=== PATIENT | male | born 1960 | race Caucasian/White ===

== ENCOUNTER → 2017-09-17 11:12 | Outpatient (CLI) | payer OTHER, SELFPAY ==
[2017-09-17 12:21] LABS: Absolute Neutrophil Count 4.9 X10^3/uL (2.0-7.7); Basophil# 0.03 X10^3/uL; Basophil% 0.2 % (0-1); Eosinophil# 0.36 X10^3/uL; Eosinophils% 1.9 % (0-5); Hematocrit 37.8 % (40-54); Hemoglobin 12.8 g/dl (13.0-16.5); Lymphocyte % 67.5 % (19-41); Mean Corp Hgb Conc 33.9 g/gl (32-36); Mean Corpuscular Hgb 31.8 pg (27.0-32.0); Mean Platelet Vol. 10.6 fl (6.2-12.0); Monocyte# 0.76 X10^3/uL; Monocyte% 4.1 % (0-10); Neutrophil # 4.85 X10^3/uL (2.7-7.7); Neutrophil % 26.2 % (47-70); Platelet Count 223 K/mm3 (150-450); RBC Distribution Width CV 14.1 % (11.6-14.6); RBC Distribution Width SD 47.9 fl (35.1-43.9); Red Blood Count 4.02 M/mm3 (4.6-6.2); White Blood Count 18.5 K/mm3 (4.4-11.0)
[2017-09-17 12:22] LABS: Differential Indicated SCAN CRITERIA MET; POSITIVE COUNT NO; POSITIVE DIFFERENTIAL YES
[2017-09-17 12:30] LABS: ALB/GLOB Ratio 1.3 RATIO (0.9-2.4); AST(SGOT) 21 U/L (15-37); Alanine Aminotransfer ALT/SGPT 40 U/L (16-61); Albumin, Serum 3.9 g/dL (3.2-5.0); Alkaline Phosphatase 60 U/L (45-117); Anion Gap 10 (5-15); BUN 14 mg/dL (7-18); BUN/Creat Ratio 14.2 RATIO (10-20); Calcium,Total 8.6 mg/dL (8.5-10.1); Chloride 100 mmol/L (98-107); Creatinine, Serum 0.99 mg/dL (0.70-1.30); EST Glomerular Filtration Rate 83 mL/min (>60); Est Glom Filt Rate - Afr Amer 100 mL/min (>60); Globulin 2.9 g/dL (2.2-4.2); Glucose 250 mg/dL (74-106); PSA,Total - Annual Screen 0.27 ng/mL (0.00-4.00); Potassium 4.2 mmol/L (3.5-5.1); Protein, Total 6.8 g/dL (6.4-8.2); Sodium Level 136 mmol/L (136-145); Thyroid Stim Hormone (TSH) 0.29 uIU/mL (0.358-3.74)
[2017-09-17 12:44] LABS: Smudge Cells RARE
[2017-09-17 13:03] LABS: Atypical Lymphocyte RARE %
[2017-09-17 13:04] LABS: POSITIVE MORPHOLOGY YES
[2017-09-19 10:24] LABS: Hep C Antibodies 0.2 s/co ratio (0.0-0.9)
[2017-09-20 12:58] LABS: Pathologist Review Reviewed
== END ==
PROVIDERS: Family Provider Family Medicine Geriatric Medicine; PCP Family Medicine Geriatric Medicine; Visit Provider Family Medicine Geriatric Medicine
DX: E11.9 Type 2 diabetes mellitus without complications (principal); E23.6 Other disorders of pituitary gland; I10 Essential (primary) hypertension; Z12.5 Encounter for screening for malignant neoplasm of prostate; Z13.89 Encounter for screening for other disorder
CPT/HCPCS: 36415; 80053; 84153; 84403; 84443; 85025; 86803; G0103

== ENCOUNTER → 2018-01-25 09:53 | Outpatient (CLI) | payer OTHER, SELFPAY ==
[2018-01-25 13:03] LABS: Thyroid Stim Hormone (TSH) 0.56 uIU/mL (0.358-3.74)
== END ==
PROVIDERS: Family Provider Family Medicine Geriatric Medicine; PCP Family Medicine Geriatric Medicine; Visit Provider Family Medicine Geriatric Medicine
DX: E03.9 Hypothyroidism, unspecified (principal)
CPT/HCPCS: 36415; 84443

== ENCOUNTER → 2018-03-11 09:04 | Outpatient (CLI) | payer OTHER, SELFPAY ==
[2018-03-11 09:04] VITALS: BMI 27.3
[2018-03-11 12:55] LABS: ALB/GLOB Ratio 1.5 RATIO (0.9-2.4); AST(SGOT) 25 U/L (15-37); Alanine Aminotransfer ALT/SGPT 35 U/L (16-61); Albumin, Serum 4.3 g/dL (3.2-5.0); Alkaline Phosphatase 67 U/L (45-117); Anion Gap 10 (5-15); BUN 15 mg/dL (7-18); BUN/Creat Ratio 14.9 RATIO (10-20); Chloride 100 mmol/L (98-107); Creatinine, Serum 1.01 mg/dL (0.70-1.30); Differential Indicated SCAN CRITERIA MET; EST Glomerular Filtration Rate 80 mL/min (>60); Est Glom Filt Rate - Afr Amer 97 mL/min (>60); Globulin 2.8 g/dL (2.2-4.2); Glucose 209 mg/dL (74-106); Hematocrit 41.3 % (40-54); Hemoglobin 14.2 g/dl (13.0-16.5); Lymphocyte % 71.7 % (19-41); Mean Corp Hgb Conc 34.4 g/gl (32-36); Mean Corpuscular Hgb 32.2 pg (27.0-32.0); Mean Corpuscular Volume 93.7 fL (80-94); Mean Platelet Vol. 10.8 fl (6.2-12.0); Neutrophil % 22.3 % (47-70); POSITIVE COUNT NO; POSITIVE DIFFERENTIAL YES; POSITIVE MORPHOLOGY YES; Platelet Count 244 K/mm3 (150-450); Potassium 4.3 mmol/L (3.5-5.1); Protein, Total 7.1 g/dL (6.4-8.2); RBC Distribution Width CV 13.9 % (11.6-14.6); RBC Distribution Width SD 47.2 fl (35.1-43.9); Reactive Lymphocyte 1+; Red Blood Count 4.41 M/mm3 (4.6-6.2); Sodium Level 136 mmol/L (136-145); Thyroid Stim Hormone (TSH) 1.67 uIU/mL (0.358-3.74); White Blood Count 21.9 K/mm3 (4.4-11.0)
[2018-03-11 12:56] LABS: Absolute Neutrophil Count 4.9 X10^3/uL (2.0-7.7); Basophil# 0.05 X10^3/uL; Basophil% 0.2 % (0-1); Eosinophil# 0.49 X10^3/uL; Eosinophils% 2.2 % (0-5); Monocyte# 0.76 X10^3/uL; Monocyte% 3.5 % (0-10); Neutrophil # 4.87 X10^3/uL (2.7-7.7); Smudge Cells 1+
[2018-03-15 10:47] LABS: Pathologist Review Reviewed
== END ==
PROVIDERS: Family Provider Family Medicine Geriatric Medicine; PCP Family Medicine Geriatric Medicine; Visit Provider Family Medicine Geriatric Medicine
DX: E11.9 Type 2 diabetes mellitus without complications (principal); E23.6 Other disorders of pituitary gland; I10 Essential (primary) hypertension
CPT/HCPCS: 36415; 80053; 84403; 84443; 85025

== ENCOUNTER → 2018-04-14 16:13 | Outpatient (CLI) | payer OTHER, SELFPAY ==
[2018-03-11 09:04] VITALS: BMI 27.3
--- NOTE | 2018-04-14 16:16 | RAD_ITS ---
HISTORY: PATIENT FELL A COUPLE OF DAYS AGO. PAIN AND SWELLING TOP OF LEFT FOOT INTO LEFT ANKLE ANTERIORLY. COMPARISON: None FINDINGS: XR left ankle 2 views No fracture, dislocation, or acute osseous abnormality. The tibiotalar joint space appears preserved. The talar dome appears intact. Atherosclerotic calcifications. Moderate to large plantar calcaneal spur. RAD/Ankle 2 Views IMPRESSION: 1. No fracture or acute osseous abnormality. 2. Atherosclerotic calcifications. 3. Plantar calcaneal spur. at 0746 Reported and signed by: Mark Mann MD Electronically Signed: Mark Mann, at 7:45 EST Tel , Service support ,
--- NOTE | 2018-04-14 16:16 | RAD_ITS ---
HISTORY: PATIENT FELL A COUPLE OF DAYS AGO. PAIN AND SWELLING TOP OF LEFT FOOT INTO LEFT ANKLE ANTERIORLY. COMPARISON: None FINDINGS: XR left foot 2 views No fracture or acute osseous abnormality. Joint spaces are preserved. Moderate to large plantar calcaneal spur which measures approximate 9 mm in length. The plantar arch is maintained. No radiopaque foreign body. Atherosclerotic calcifications. RAD/Foot 2 Views IMPRESSION: 1. No fracture or acute disease. 2. Moderate to large plantar calcaneal spur. 3. Atherosclerotic calcifications. at 0744 Reported and signed by: Mark Mann MD Electronically Signed: Mark Mann, at 7:43 EST Tel , Service support ,
== END ==
LOC: RAD 16:15
PROVIDERS: Family Provider Family Medicine Geriatric Medicine; PCP Family Medicine Geriatric Medicine; Referring Provider Family Medicine Geriatric Medicine; Visit Provider Family Medicine Geriatric Medicine
DX: M25.572 Pain in left ankle and joints of left foot (principal); M79.672 Pain in left foot
CPT/HCPCS: 73600; 73620

== ENCOUNTER → 2018-09-22 | Outpatient (CLI) | payer OTHER, SELFPAY ==
[2018-05-23 09:37] VITALS: BMI 25.7
[2018-09-22 17:34] LABS: Absolute Lymphocyte Count 17.62 X10^3/ul (0.83-4.51); Absolute Neutrophil Count 4.4 X10^3/uL (2.0-7.7); Basophil# 0.05 X10^3/uL; Basophil% 0.2 % (0-1); Differential Indicated SCAN CRITERIA MET; Eosinophil# 0.34 X10^3/uL; Eosinophils% 1.5 % (0-5); Hematocrit 39.5 % (40-54); Hemoglobin 13.8 g/dl (13.0-16.5); Lymphocyte # 17.62 X10^3/ul (4.0); Lymphocyte % 76.8 % (19-41); Mean Corp Hgb Conc 34.9 g/gl (32-36); Mean Corpuscular Hgb 31.9 pg (27.0-32.0); Mean Corpuscular Volume 91.2 fL (80-94); Mean Platelet Vol. 10.4 fl (6.2-12.0); Monocyte# 0.53 X10^3/uL; Monocyte% 2.3 % (0-10); Neutrophil # 4.36 X10^3/uL (2.7-7.7); POSITIVE COUNT YES; POSITIVE DIFFERENTIAL YES; POSITIVE MORPHOLOGY NO; Platelet Count 257 K/mm3 (150-450); RBC Distribution Width CV 13.8 % (11.6-14.6); RBC Distribution Width SD 45.3 fl (35.1-43.9); Red Blood Count 4.33 M/mm3 (4.6-6.2)
[2018-09-22 17:51] LABS: ALB/GLOB Ratio 1.4 RATIO (0.9-2.4); AST(SGOT) 24 U/L (15-37); Alanine Aminotransfer ALT/SGPT 33 U/L (16-61); Alkaline Phosphatase 68 U/L (45-117); Anion Gap 6 (5-15); BUN 18 mg/dL (7-18); BUN/Creat Ratio 17.1 RATIO (10-20); Calcium,Total 9.1 mg/dL (8.5-10.1); Chloride 105 mmol/L (98-107); Creatinine, Serum 1.05 mg/dL (0.70-1.30); EST Glomerular Filtration Rate 77 mL/min (>60); Est Glom Filt Rate - Afr Amer 93 mL/min (>60); Globulin 2.9 g/dL (2.2-4.2); Glucose 131 mg/dL (74-106); PSA,Total - Annual Screen 0.37 ng/mL (0.00-4.00); Potassium 4.9 mmol/L (3.5-5.1); Protein, Total 6.9 g/dL (6.4-8.2); Sodium Level 137 mmol/L (136-145); Thyroid Stim Hormone (TSH) 0.29 uIU/mL (0.358-3.74)
[2018-09-22 17:59] LABS: Differential Comment SCANNED
== END | disposition home or self-care (01) ==
LOC: POLAB3 10:59
PROVIDERS: Family Provider Family Medicine Geriatric Medicine; PCP Family Medicine Geriatric Medicine; Visit Provider Family Medicine Geriatric Medicine
DX: E11.9 Type 2 diabetes mellitus without complications (principal); F52.8 Other sexual dysfunction not due to a substance or known physiological condition; I10 Essential (primary) hypertension; Z12.5 Encounter for screening for malignant neoplasm of prostate
CPT/HCPCS: 36415; 80053; 84153; 84403; 84443; 85025; G0103

== ENCOUNTER → 2019-03-23 16:08 | Outpatient (CLI) | payer OTHER, SELFPAY ==
[2018-05-23 09:37] VITALS: BMI 25.7
[2018-11-23 16:01] VITALS: BMI 26.0
[2019-03-23 17:00] LABS: Absolute Lymphocyte Count 16.65 X10^3/uL (0.83-4.51); Absolute Neutrophil Count 4.7 X10^3/uL (2.0-7.7); Basophil# 0.08 X10^3/uL; Basophil% 0.3 % (0-1); Eosinophils% 1.7 % (0-5); Hematocrit 41.3 % (40-54); Hemoglobin 14.1 g/dL (13.0-16.5); Lymphocyte # 16.65 X10^3/ul (4.0); Lymphocyte % 70.3 % (19-41); Mean Corp Hgb Conc 34.1 g/dL (32-36); Mean Corpuscular Hgb 32.2 pg (27.0-32.0); Mean Corpuscular Volume 94.3 fL (80-94); Mean Platelet Vol. 10.7 fl (6.2-12.0); Monocyte# 1.78 X10^3/uL; Monocyte% 7.5 % (0-10); NRBC Flagged by Analyzer 0 % (0-5); Neutrophil # 4.73 X10^3/uL (2.7-7.7); POSITIVE DIFFERENTIAL YES; POSITIVE MORPHOLOGY YES; Platelet Count 287 K/mm3 (150-450); RBC Distribution Width CV 13.4 % (11.6-14.6); Red Blood Count 4.38 M/mm3 (4.6-6.2); White Blood Count 23.7 K/mm3 (4.4-11.0)
[2019-03-23 17:09] LABS: Differential Indicated SCAN CRITERIA MET
[2019-03-23 17:20] LABS: Vitamin D,25 Hydroxy 24.9 ng/mL (29.95-100.01)
[2019-03-23 17:25] LABS: ALB/GLOB Ratio 1.4 RATIO (0.9-2.4); AST(SGOT) 18 U/L (15-37); Alanine Aminotransfer ALT/SGPT 34 U/L (16-61); Albumin, Serum 4.3 g/dL (3.2-5.0); Alkaline Phosphatase 63 U/L (45-117); Anion Gap 5 (5-15); BUN 15 mg/dL (7-18); BUN/Creat Ratio 13.2 RATIO (10-20); Calcium,Total 9.6 mg/dL (8.5-10.1); Chloride 101 mmol/L (98-107); Creatinine, Serum 1.14 mg/dL (0.70-1.30); EST Glomerular Filtration Rate 70 mL/min (>60); Est Glom Filt Rate - Afr Amer 84 mL/min (>60); Glucose 226 mg/dL (74-106); Potassium 4.3 mmol/L (3.5-5.1); Protein, Total 7.3 g/dL (6.4-8.2); Sodium Level 135 mmol/L (136-145); Thyroid Stim Hormone (TSH) 1.45 uIU/mL (0.358-3.74)
[2019-03-23 19:07] LABS: Platelet Estimate ADEQUATE (ADEQ); Reactive Lymphocyte 1+; Red Cell Morphology NORM C+C NORMAL (NORM C&C)
[2019-03-24 14:10] LABS: Pathologist Review Reviewed
== END ==
LOC: POLAB3 16:09
PROVIDERS: Family Provider Family Medicine Geriatric Medicine; PCP Family Medicine Geriatric Medicine; Visit Provider Family Medicine Geriatric Medicine
DX: E11.9 Type 2 diabetes mellitus without complications (principal); E55.9 Vitamin D deficiency, unspecified; I10 Essential (primary) hypertension
CPT/HCPCS: 36415; 80053; 82306; 84443; 85025

== ENCOUNTER → 2019-09-28 16:05 | Outpatient (CLI) | payer OTHER, SELFPAY ==
[2019-05-24 13:50] VITALS: BMI 26.4
[2019-09-28 16:27] LABS: Absolute Lymphocyte Count 15.14 X10^3/uL (0.83-4.51); Absolute Neutrophil Count 4.5 X10^3/uL (2.0-7.7); Basophil# 0.08 X10^3/uL; Basophil% 0.4 % (0-1); Eosinophil# 0.37 X10^3/uL; Eosinophils% 1.7 % (0-5); Hematocrit 38.7 % (40-54); Hemoglobin 13.5 g/dL (13.0-16.5); Lymphocyte # 15.14 X10^3/ul (4.0); Lymphocyte % 69.2 % (19-41); Mean Corp Hgb Conc 34.9 g/dL (32-36); Mean Corpuscular Hgb 32.6 pg (27.0-32.0); Mean Corpuscular Volume 93.5 fL (80-94); Mean Platelet Vol. 10.6 fl (6.2-12.0); Monocyte# 1.75 X10^3/uL; NRBC Flagged by Analyzer 0 % (0-5); Neutrophil # 4.48 X10^3/uL (2.7-7.7); Neutrophil % 20.4 % (47-70); POSITIVE DIFFERENTIAL YES; POSITIVE MORPHOLOGY YES; Platelet Count 257 K/mm3 (150-450); RBC Distribution Width CV 13.4 % (11.6-14.6); RBC Distribution Width SD 46.2 fl (35.1-43.9); Red Blood Count 4.14 M/mm3 (4.6-6.2); White Blood Count 21.9 K/mm3 (4.4-11.0)
[2019-09-28 16:29] LABS: Differential Indicated SCAN CRITERIA MET
[2019-09-28 16:47] LABS: Differential Comment SEE COMMENTS
[2019-09-28 16:48] LABS: Anisocytosis RARE; Macrocytosis RARE; Platelet Estimate ADEQUATE (ADEQ); Red Cell Morphology N CHROM NORMAL (NORM C&C)
[2019-09-28 17:21] LABS: ALB/GLOB Ratio 1.4 RATIO (0.9-2.4); AST(SGOT) 21 U/L (15-37); Alanine Aminotransfer ALT/SGPT 31 U/L (16-61); Albumin, Serum 4.1 g/dL (3.2-5.0); Alkaline Phosphatase 62 U/L (45-117); Anion Gap 8 (5-15); BUN 19 mg/dL (7-18); BUN/Creat Ratio 18.4 RATIO (10-20); Calcium,Total 9.1 mg/dL (8.5-10.1); Chloride 100 mmol/L (98-107); Creatinine, Serum 1.03 mg/dL (0.70-1.30); EST Glomerular Filtration Rate 78 mL/min (>60); Est Glom Filt Rate - Afr Amer 95 mL/min (>60); Glucose 234 mg/dL (74-106); PSA,Total - Annual Screen 0.34 ng/mL (0.00-4.00); Potassium 4.3 mmol/L (3.5-5.1); Protein, Total 7.1 g/dL (6.4-8.2); Sodium Level 135 mmol/L (136-145)
[2019-09-29 11:06] LABS: Pathologist Review Reviewed
== END ==
PROVIDERS: PCP Family Medicine Geriatric Medicine; Visit Provider Family Medicine Geriatric Medicine
DX: E11.9 Type 2 diabetes mellitus without complications (principal); E23.6 Other disorders of pituitary gland; I10 Essential (primary) hypertension; Z12.5 Encounter for screening for malignant neoplasm of prostate
CPT/HCPCS: 36415; 80053; 84153; 84403; 84443; 85025; G0103

== ENCOUNTER → 2019-10-03 | Outpatient (CLI) | payer OTHER, SELFPAY ==
[2019-05-24 13:50] VITALS: BMI 26.4
--- NOTE | 2019-10-03 | LES_PTH ---
PATIENT: SAMUEL BRODERICK LOC: [facility] U#:[id number] AGE/SX: 58/M ROOM: RE10/03/[address]: Dr. Emery Lambert MD : 1960 BED: DIS: 10/03/2019 SPEC #: [id number] RECD: 10/03/19 14:06 STATUS: TELMA VIOLETA #: [id number] JOB: 10/03/19 00:[address]: Emery Lambert Chi DEPT: SURGICAL PATHOLOGY RECD BY: Moise Shaffer Tissues: Skin of head, NOS Procedures: Surgery Specimen Level IV HEADER OPERATION: Biopsy PRE-OP DIAGNOSIS: Back of head lesion TISSUE SUBMITTED: Back of head MICROSCOPIC DIAGNOSIS Back of head lesion, shave biopsy: Actinic keratosis with mild atypia. Solar elastosis. Focal mild chronic follicular inflammation. Mild melanocytic hyperplasia, favor reactive. Demodex folliculorum. See comment. MALENA:zach 10/04/19 COMMENT Immunohistochemistry ([id number]) supports the above diagnosis. Clinical correlation and appropriate follow up are necessary. Case has been reviewed in consultation with Dr. Valdovinos who concurs with the above diagnosis. IDC:AM MICROSCOPIC DESCRIPTION Slides are reviewed. GROSS DESCRIPTION Received in fixative is one container labeled with the patient's name and designated back of head. The specimen consists of a light martin shaved biopsy of skin measuring 1 x 0.8 x 0.2 cm. The specimen is inked, serially sectioned and totally submitted in one cassette. / AM:zach 10/03/19 TC:5 CPT: 18939
--- NOTE | 2019-10-03 | IMM_PTH ---
PATIENT: SAMUEL BRODERICK LOC: [facility] U#:[id number] AGE/SX: 58/M ROOM: RE10/03/[address]: Dr. Emery Lambert MD : 1960 BED: DIS: 10/03/2019 SPEC #: [id number] RECD: 10/04/19 13:39 STATUS: TELMA REQ #: [id number] JOB: 10/03/19 00:[address]: Emery Lambert Chi DEPT: IMMUNOHISTOCHEMISTRY RECD BY: Sharron Shin Tissues: Skin of head, NOS Procedures: CK5-6 (initial) MART1 (add) P40 (add) S-100 (add) PHYSICIAN & INSTITUTION [place] [id number] SPECIMEN INFORMATION: Tissue Source: Back of head Clinical Info: Back of head lesion Specimen Number: [id number] CPT code: 76366, 98271 x3 METHODOLOGY: Deparaffinized sections of prefer/formalin-fixed tissue or PAP/DQ stained slides are incubated with monoclonal/polyclonal antibodies/oligonucleotide probes. Localization is made via biotin free immunoperoxidase method. Appropriate controls are performed and reacted as expected. Results on target cell population are indicated in the following table: RESULTS: ANTIBODY / CLONE RESULT CK5-6 (D5 & 1684) positive P40 (BC28) positive S-100 (4C4.9) positive MART-1 (A-103) positive These tests were developed and their performance characteristics determined by [facility]. They may not have been cleared or approved by the U.S. Food and Drug Administration. The FDA has determined that such clearance or approval is not necessary. The above immunohistochemical/dualISH markers are ordered and reviewed by the Pathologist. INTERPRETATION: Back of head lesion, biopsy: Actinic keratosis. Mild melanocytic hyperplasia, favor reactive. Negative for malignancy. SJ:zach 10/05/19
== END | disposition home or self-care (01) ==
LOC: LABSPEC 11:42
PROVIDERS: PCP Family Medicine Geriatric Medicine; Visit Provider Family Medicine Geriatric Medicine
DX: L98.9 Disorder of the skin and subcutaneous tissue, unspecified (principal)
CPT/HCPCS: 88305; 88341; 88342

== ENCOUNTER → 2020-04-18 16:02 | Outpatient (CLI) | payer OTHER, SELFPAY ==
[2019-05-24 13:50] VITALS: BMI 26.4
[2020-04-18 16:36] LABS: Absolute Lymphocyte Count 23.42 X10^3/uL (0.83-4.51); Absolute Neutrophil Count 4.8 X10^3/uL (2.0-7.7); Basophil% 0.3 % (0-1); Hematocrit 41.7 % (40-54); Hemoglobin 14.2 g/dL (13.0-16.5); Lymphocyte # 23.42 X10^3/ul (4.0); Lymphocyte % 79.9 % (19-41); Mean Corp Hgb Conc 34.1 g/dL (32-36); Mean Corpuscular Hgb 31.4 pg (27.0-32.0); Mean Corpuscular Volume 92.3 fL (80-94); Mean Platelet Vol. 10.5 fl (6.2-12.0); Monocyte# 0.61 X10^3/uL; Monocyte% 2.1 % (0-10); NRBC Flagged by Analyzer 0 % (0-5); Neutrophil # 4.81 X10^3/uL (2.7-7.7); Neutrophil % 16.5 % (47-70); POSITIVE DIFFERENTIAL YES; POSITIVE MORPHOLOGY YES; Platelet Count 253 K/mm3 (150-450); RBC Distribution Width CV 13.7 % (11.6-14.6); RBC Distribution Width SD 46.3 fl (35.1-43.9); Red Blood Count 4.52 M/mm3 (4.6-6.2); White Blood Count 29.3 K/mm3 (4.4-11.0)
[2020-04-18 16:43] LABS: Differential Indicated SCAN CRITERIA MET
[2020-04-18 17:01] LABS: ALB/GLOB Ratio 1.3 RATIO (0.9-2.4); AST(SGOT) 14 U/L (15-37); Alanine Aminotransfer ALT/SGPT 28 U/L (16-61); Albumin, Serum 4.1 g/dL (3.2-5.0); Alkaline Phosphatase 75 U/L (45-117); Anion Gap 5 (5-15); BUN 15 mg/dL (7-18); BUN/Creat Ratio 14.7 RATIO (10-20); Chloride 103 mmol/L (98-107); Creatinine, Serum 1.02 mg/dL (0.70-1.30); EST Glomerular Filtration Rate 79 mL/min (>60); Est Glom Filt Rate - Afr Amer 95 mL/min (>60); Globulin 3.1 g/dL (2.2-4.2); Glucose 203 mg/dL (74-106); Potassium 3.9 mmol/L (3.5-5.1); Protein, Total 7.2 g/dL (6.4-8.2); Sodium Level 137 mmol/L (136-145); Thyroid Stim Hormone (TSH) 3.75 uIU/mL (0.358-3.74)
[2020-04-18 17:06] LABS: Differential Comment SCANNED
== END ==
PROVIDERS: PCP Family Medicine Geriatric Medicine; Visit Provider Family Medicine Geriatric Medicine
DX: E11.9 Type 2 diabetes mellitus without complications (principal); E23.6 Other disorders of pituitary gland; I10 Essential (primary) hypertension
CPT/HCPCS: 36415; 80053; 84403; 84443; 85025

== ENCOUNTER → 2020-05-20 15:36 | Outpatient (CLI) | payer OTHER, SELFPAY ==
[2019-05-24 13:50] VITALS: BMI 26.4
[2020-05-20 17:17] LABS: Absolute Lymphocyte Count 17.82 X10^3/uL (0.83-4.51); Basophil# 0.04 X10^3/uL; Basophil% 0.2 % (0-1); Eosinophil# 0.41 X10^3/uL; Eosinophils% 1.7 % (0-5); Hemoglobin 13.9 g/dL (13.0-16.5); Lymphocyte # 17.82 X10^3/ul (4.0); Lymphocyte % 74.7 % (19-41); Mean Corp Hgb Conc 34.8 g/dL (32-36); Mean Corpuscular Hgb 32.3 pg (27.0-32.0); Mean Platelet Vol. 11.1 fl (6.2-12.0); Monocyte# 0.54 X10^3/uL; Monocyte% 2.3 % (0-10); NRBC Flagged by Analyzer 0 % (0-5); Neutrophil # 4.97 X10^3/uL (2.7-7.7); Neutrophil % 20.7 % (47-70); POSITIVE DIFFERENTIAL YES; POSITIVE MORPHOLOGY YES; Platelet Count 243 K/mm3 (150-450); RBC Distribution Width CV 13.6 % (11.6-14.6); RBC Distribution Width SD 46.5 fl (35.1-43.9); White Blood Count 23.9 K/mm3 (4.4-11.0)
[2020-05-20 17:29] LABS: Prothrombin Time (Protime)PT. 13.1 SECONDS (11.7-14.9)
[2020-05-20 17:36] LABS: Differential Indicated SCAN CRITERIA MET
[2020-05-20 17:43] LABS: Differential Comment SCANNED
[2020-05-20 17:49] LABS: Anion Gap 6 (5-15); BUN 19 mg/dL (7-18); BUN/Creat Ratio 18.8 RATIO (10-20); Calcium,Total 9.3 mg/dL (8.5-10.1); Chloride 102 mmol/L (98-107); Creatinine, Serum 1.01 mg/dL (0.70-1.30); EST Glomerular Filtration Rate 80 mL/min (>60); Est Glom Filt Rate - Afr Amer 96 mL/min (>60); Glucose 316 mg/dL (74-106); Potassium 4.1 mmol/L (3.5-5.1); Sodium Level 136 mmol/L (136-145)
[2020-05-22 09:38] LABS: Hemoglobin A1c 7.6 % (3.8-5.6)
== END ==
PROVIDERS: PCP Family Medicine Geriatric Medicine; Referring Provider Family Medicine Geriatric Medicine; Visit Provider Family Medicine Geriatric Medicine
DX: Z01.818 Encounter for other preprocedural examination (principal)
CPT/HCPCS: 36415; 80048; 83036; 85025; 85610

== ENCOUNTER → 2020-05-22 06:02 | Outpatient (CLI) | payer OTHER, SELFPAY ==
[2019-05-24 13:50] VITALS: BMI 26.4
--- NOTE | 2020-05-22 09:58 | STRESSREP_ITS ---
Stress Test Report Date: 05-22-2020 Procedure: Pharmacologic stress nuclear imaging study Indications: Abnormal ECG; preoperative cardiovascular evaluation Consent: Per the patient Procedure: The patient underwent pharmacologic (Regadenoson 0.4mg ) evaluation with a peak heart rate of 84 beats per minute (52%predicted maximal heart rate) and a peak blood pressure of 150/70 mmHg. The baseline ECG demonstrated sinus rhythm; Incomplete right bundle branch block pattern. The peak pharmacologic ECG demonstrated no obvious ECG changes. There were no cardiac dysrhythmias pretest, during pharmacologic infusion, or recovery. There was no complaint of chest discomfort during pharmacologic infusion or recovery. The examination was discontinued secondary to completion of protocol. Impression: 1. Pharmacologic (Regadenoson) evaluation 2. Peak pharmacologic ECG with no obvious ECG changes. 3. There were no cardiac dysrhythmias pretest, during pharmacologic infusion, or recovery. 4. Nuclear images pending Myocardial perfusion imaging study: Technique: The patient was injected with 11.9 millicuries of technetium 99m Cardiolite and subsequently rest SPECT Cardiolite nuclear imaging was obtained in the horizontal long, vertical long, and short axis views. The patient underwent pharmacologic (Regadenoson) evaluation with a peak heart rate of 84 beats per minute (52% percent predicted maximal heart rate) and a peak blood pressure of 150/70 mmHg. The patient was injected with 33.1 millicuries of technetium 99m Cardiolite and subsequently stress SPECT Cardiolite nuclear imaging was obtained in the horizontal long, vertical long, and short axis views. A gated Cardiolite study at peak stress was obtained. Interpretation: Rest and stress SPECT Cardiolite nuclear imaging status post realignment, normalization, and attenuation correction demonstrate appearance of extracardiac/gastrointestinal tracer uptake near the inferior segments and a small area of subtle diminished tracer uptake near the inferior apical segments without significant change between rest and stress. There is end systolic thickening and brightening. The gated Cardiolite study demonstrates myocardial thickening and inward wall motion. The reported LVEF is 66%. Impression: 1. Rest and stress by current nuclear imaging demonstrate findings compatible w ith extracardiac/gastrointestinal tracer uptake near the inferior segments and a small area of subtle diminished tracer uptake near the inferior apical segments without significant change between rest and stress appearing compatible with soft tissue attenuation/artifact with no myocardial perfusion changes considered diagnostic for associated stress-induced myocardial ischemia. 2. The gated Cardiolite study reports an LVEF of 66%. This note was generated with [employer] software. It may contain incorrect words, spelling, and punctuation that were not noted in checking the note before signing.
== END ==
PROVIDERS: PCP Family Medicine Geriatric Medicine; Referring Provider Family Medicine Geriatric Medicine; Visit Provider Family Medicine Geriatric Medicine
DX: R68.89 Other general symptoms and signs (principal)
CPT/HCPCS: 78452; 93017; A9500; A4216; J2785

== ENCOUNTER → 2020-10-01 15:42 | Outpatient (CLI) | payer OTHER, SELFPAY ==
[2020-05-22 14:16] VITALS: BMI 26.2
[2020-10-01 17:04] LABS: Absolute Lymphocyte Count 20.95 X10^3/uL (0.83-4.51); Absolute Neutrophil Count 3.5 X10^3/uL (2.0-7.7); Basophil% 0.4 % (0-1); Eosinophils% 1.1 % (0-5); Hemoglobin 13.2 g/dL (13.0-16.5); Lymphocyte # 20.95 X10^3/ul (0.83-4.51); Mean Corp Hgb Conc 34.7 g/dL (32-36); Mean Corpuscular Hgb 32.5 pg (27.0-32.0); Mean Corpuscular Volume 93.6 fL (80-94); Mean Platelet Vol. 11.1 fl (6.2-12.0); Monocyte# 1.65 X10^3/uL; Monocyte% 6.2 % (0-10); NRBC Flagged by Analyzer 0 % (0-5); Neutrophil # 3.46 X10^3/uL (2.7-7.7); Neutrophil % 13.1 % (47-70); POSITIVE DIFFERENTIAL YES; POSITIVE MORPHOLOGY YES; Platelet Count 230 K/mm3 (150-450); RBC Distribution Width CV 13.2 % (11.6-14.6); RBC Distribution Width SD 45.2 fl (35.1-43.9); Red Blood Count 4.06 M/mm3 (4.6-6.2); White Blood Count 26.5 K/mm3 (4.4-11.0)
[2020-10-01 17:12] LABS: Differential Indicated SCAN CRITERIA MET
[2020-10-01 17:33] LABS: Differential Comment SCANNED
[2020-10-01 17:34] LABS: ALB/GLOB Ratio 1.7 RATIO (0.9-2.4); AST(SGOT) 21 U/L (15-37); Alanine Aminotransfer ALT/SGPT 29 U/L (16-61); Albumin, Serum 4.2 g/dL (3.2-5.0); Alkaline Phosphatase 68 U/L (45-117); Anion Gap 8 (5-15); BUN 19 mg/dL (7-18); BUN/Creat Ratio 19.3 RATIO (10-20); Calcium,Total 9.1 mg/dL (8.5-10.1); Chloride 101 mmol/L (98-107); Creatinine, Serum 0.98 mg/dL (0.70-1.30); EST Glomerular Filtration Rate 82 mL/min (>60); Est Glom Filt Rate - Afr Amer 100 mL/min (>60); Globulin 2.5 g/dL (2.2-4.2); Glucose 172 mg/dL (74-106); PSA,Total - Annual Screen 0.36 ng/mL (0.00-4.00); Potassium 4.1 mmol/L (3.5-5.1); Protein, Total 6.7 g/dL (6.4-8.2); Sodium Level 136 mmol/L (136-145); Thyroid Stim Hormone (TSH) 2.49 uIU/mL (0.358-3.74)
[2020-10-02 13:31] LABS: Pathologist Review Reviewed
== END ==
PROVIDERS: PCP Family Medicine Geriatric Medicine; Visit Provider Family Medicine Geriatric Medicine
DX: E11.9 Type 2 diabetes mellitus without complications (principal); E23.6 Other disorders of pituitary gland; I10 Essential (primary) hypertension; Z12.5 Encounter for screening for malignant neoplasm of prostate
CPT/HCPCS: 36415; 80053; 84153; 84403; 84443; 85025; G0103

== ENCOUNTER → 2020-10-04 12:57 | Outpatient (CLI) | payer OTHER, SELFPAY ==
[2020-05-22 14:16] VITALS: BMI 26.2
--- NOTE | 2020-10-04 12:59 | CT_ITS ---
STUDY: CT MAXILLOFACIAL SINUSES REASON FOR EXAM: Male, 59 years old. CHRONIC SINUSITIS RADIATION DOSAGE (If Supplied By Facility): CTDIvol = ( 33.06 ) mGy, DLP = ( 792.53 ) mGycm TECHNIQUE: The patient was scanned in a multi detector CT scanner. High resolution axial imaging was performed without the administration of intravenous contrast material. Sagittal and coronal images were reconstructed. Individualized dose optimization techniques were used for this CT. COMPARISON: Comparison is made with prior study dated 04/27/2014. FINDINGS: FRONTAL SINUSES: Mucosal thickening of the right frontal sinus. ETHMOIDAL SINUSES: There is partial opacification of the ethmoid sinuses bilaterally slightly more prominent on the right side. Prominent on the right side. MAXILLARY SINUSES: There is opacification of the right maxillary sinus. There is evidence of prior resection of the medial wall of the right maxillary sinus. SPHENOIDAL SINUSES: Mucosal thickening of the right sphenoid sinus. There is patency of the left ostiomeatal complex. Normal bilateral middle turbinates. There is hypertrophy of the bilateral inferior nasal turbinates. There is a left sided nasal septal deviation with a left sided nasal septal spur. There is patency of the bilateral nasal airways. The visualized osseous structures are normal. The visualized bilateral orbital contents are normal. CT/Sinus/Facial Bone IMPRESSION: Status post surgical resection of the medial wall of the right maxillary sinus. Opacification of the right maxillary sinus. Partial opacification of the ethmoid sinuses bilaterally slightly There is been improvement as compared to prior study. Electronically Signed: Terry Dove MD at 13:46 EDT , Service support ,
== END ==
PROVIDERS: PCP Family Medicine Geriatric Medicine; Referring Provider Otolaryngology; Visit Provider Otolaryngology
DX: J32.9 Chronic sinusitis, unspecified (principal)
CPT/HCPCS: 70486

== ENCOUNTER 2021-01-06 05:59 | Day surgery (SDC) | payer OTHER, SELFPAY ==
[2020-05-22 14:16] VITALS: BMI 26.2
[2021-01-03 10:09] LABS: Anion Gap 6 (5-15); BUN 18 mg/dL (7-18); BUN/Creat Ratio 17.3 RATIO (10-20); Calcium,Total 8.6 mg/dL (8.5-10.1); Chloride 102 mmol/L (98-107); Creatinine, Serum 1.04 mg/dL (0.70-1.30); EST Glomerular Filtration Rate 77 mL/min (>60); Est Glom Filt Rate - Afr Amer 93 mL/min (>60); Glucose 285 mg/dL (74-106); Hemoglobin A1c 6.7 % (3.8-5.6); Potassium 4.4 mmol/L (3.5-5.1); Sodium Level 135 mmol/L (136-145); Thyroid Stim Hormone (TSH) 1.21 uIU/mL (0.358-3.74)
[2021-01-06] VITALS (7 sets, daily range): BP systolic 128–147; BP diastolic 68–80; PULSE 63–76; RESP 14–16; TEMP 35.9–36.5; O2SAT 93–98; BMI 26.8
[2021-01-06] MEDS: Lactated Ringers 1,000 ML 100 ML IV (06:21)
[2021-01-06] MEDS: Oxymetazoline 0.05% 1 SPRAY SPRAY.BTL 3 SPRAY NASAL (07:08)
--- NOTE | 2021-01-06 07:25 | EKG12_ITS ---
Test Reason : PRE OP Blood Pressure : / mmHG Vent. Rate : 059 BPM Atrial Rate : 059 BPM P-R Int : 178 ms QRS Dur : 120 ms QT Int : 416 ms P-R-T Axes : 049 -45 035 degrees QTc Int : 411 ms Sinus bradycardia Right bundle branch block Left anterior fascicular block Bifascicular block Abnormal ECG Confirmed by JAYE CARNEY, KAMERON ([id number]), newspaper editor NOLBERTO CHI ([id number]) on 01/06/2021 7:26:36 AM Referred By: Marcos Stanton Confirmed By:KAMERON CEE MD
--- NOTE | 2021-01-06 07:30 | NASAL_PTH ---
PATIENT: SAMUEL BRODERICK LOC: [facility] [place] U#:[id number] AGE/SX: 60/M ROOM: RE01/06/[address]: Dr. Marcos Stanton MD : 1960 BED: DIS: 01/06/2021 SPEC #: [id number] RECD: 01/06/21 12:56 STATUS: TELMA VIOLETA #: [id number] JOB: 01/06/21 07:[address]: Marcos Stanton DEPT: SURGICAL PATHOLOGY RECD BY: Shandra David ENTERED: 01/06/21 13:11 SP TYPE: NASAL SPEC OTHR DR: Dr. Emery Lambert MD Tissues: A - NASAL POLYP B - NASAL POLYP C - Nasal septum, NOS Procedures: Decalcification bone/plaque Special Stain Group I Surgery Specimen Level III GMS Stain (control) HEADER OPERATION: Total ethmoidectomy, maxillary antrostomy, septoplasty PRE-OP DIAGNOSIS: Polyp nasal cavity, chronic sinusitis, deviated septum TISSUE SUBMITTED: A ? Right nasal contents, B ? Left nasal contents, C - Septum MICROSCOPIC DIAGNOSIS A. Right nasal contents, excision: Respiratory mucosa and submucosa with chronic and focal acute inflammation. Negative for fungal organisms. Fragments of benign bone. See comment. B. Left nasal contents, excision: Fragments of respiratory mucosa and submucosa with chronic inflammation. Fragments of bone with no pathologic change. C. Nasal septum, septoplasty: Fragments of hyaline cartilage and bone with focal reparative and reactive change. AM:zach 01/09/2021 COMMENT A. GMS stain with matched control was used in the evaluation of this case. MICROSCOPIC DESCRIPTION Slides are reviewed. GROSS DESCRIPTION A - Received in fixative is one container labeled with the patient's name and designated right nasal contents. The specimen consists of multiple irregular and gritty fragments of light martin tissue that in aggregate measure 3 x 1 x 0.1 cm. The specimen is totally submitted in one cassette after decalcification. B - Received in fixative is one container labeled with the patient's name and designated left nasal contents. The specimen consists of multiple irregular and gritty fragments of light martin tissue that in aggregate measure 3 x 3 x 0.2 cm. The specimen is totally submitted in one cassette after decalcification. C - Received in fixative is one container labeled with the patient's name and designated septum. The specimen consists of multiple irregular fragments of pink-martin bone that in aggregate measure 2 x 1 x 0.2 cm. The specimen is totally submitted in one cassette after decalcification. / AM:zach 01/06/21 TC:3 CPT: 46400 x3, 66399 x3, 82625
--- NOTE | 2021-01-06 07:36 | PCM.DC.SUM ---
Providers Primary Care Physician: Dr. Emery Lambert MD Reason For Visit: BILATERAL ETHMOIDECTOMY, MAXILLARY ANSTROSTOMY Medications at Discharge Home Medications atorvastatin 40 mg PO BREAKFAST 07/02/16 lactase [Dairy Digestive] 4,500 unit PO TID 07/02/16 losartan [Cozaar] 100 mg PO DAILY 07/02/16 metformin 1,000 mg PO BIDCM 07/02/16 levothyroxine 137 mcg PO DAILY 05/24/19 Weight / BMI Weight Weight: 92.3 kg Body Mass Index (BMI) 26.8 ABG / Lab / Microbiology Data Result Diagrams: 01/03/21 09:10 01/03/21 09:10 D/C Instructions Discharge Diet: No restrictions Additional Activity Instructions: NO NOSEBLOWING Additional Dressing/Incision Instructions: Start irrigation with saline on 01/07/21. Irrigate 4-5 x/day. Please Follow Up With: Marcos Stanton MD When: Next week Meaningful Use Info Meaningful Use Diagnoses (Choose all that apply): None applicable Discharge Plan Admission Attending Provider: Marcos Stanton Primary Care Provider: Emery Lambert Chi Discharge Orders/Prescriptions Prescriptions: No Action atorvastatin 10 MG tablet 40 mg PO BREAKFAST RF: 0 Dairy Digestive 9,000 UNIT tablet 4,500 unit PO TID RF: 0 metformin 1,000 MG tablet 1,000 mg PO BIDCM RF: 0 losartan [Cozaar] 25 MG tablet 100 mg PO DAILY RF: 0 levothyroxine 137 MCG tablet 137 mcg PO DAILY RF: 0 Disposition Discharge Orders: Discharge Patient (Routine); Ordered 01/06/21 Ordered By: Dr. Marcos Stanton
[2021-01-06] MEDS: Mupirocin Ointment 22gm Tube 1 APPLIC (07:44)
[2021-01-06] MEDS: Lidocaine 1% /Epi 1:100 (20ml) 20 ML Vial (07:45)
[2021-01-06 08:31] LABS: Bedside Glucose 234 mg/dL (70-110)
--- NOTE | 2021-01-06 09:23 | PCM.OPRPT ---
Report of Operation Date of Procedure: 01/06/21 Pre-Operative Diagnosis: chronic sinusitis nasal polyposis deviated septum Post-Operative Diagnosis: same Surgery/Procedure Performed:: Bilateral maxillary antrostomy bilateral total ethmoidectomy septoplasty Surgeon: Marcos Stanton Type of Anesthesia: General Anesthesiologist: Willie Ambriz Estimated Blood Loss (mL): minimal Description of Procedure: The patient was taken to the operating room on 01/06/21. The patient was placed in the supine position on the operating table. The patient was given sufficient general endotracheal anesthesia. The head of bed was elevated 30 degrees. The navigation system was placed and verified per protocol and found to be accurate. 0 and 30 degrees rigid nasal endoscopes were used throughout the entire case. The middle turbinate uncinate process, septum and polyps were injected with 1% lidocaine with epinephrine bilaterally. The right middle turbinate was medialized with a [place] elevator. Polyp was removed from the middle meatus using a sinus shaver. A ball-tipped sinus seeker was placed into the patient's maxillary sinus. The uncinate process was taken down using a microdebrider. Next, the ethmoid bulla was opened with a small curette. Anterior and posterior ethmoidectomy were then carried out using curette, sinus shaver and 45 degree Blakesley Desmond forceps. Ethmoid cells were verified for relation to the skull base and orbit prior to being entered with the navigation system. I then placed Afrin pledgets into the sinonasal cavity. With a 15 blade, an incision was placed over the left septal spur that was jutting into the left middle meatus. I then elevated the mucoperichondrium superiorly and inferiorly off of the spur. I then established a plane on the right-hand side of the septum. The spur was then removed with the [place] elevator as well as open Hair-Quan forceps. The septal flaps were then redraped. Next attention was turned to the left side. The middle turbinate was medialized with a [place] elevator. A polyp was removed from the middle meatus using a sinus shaver. The uncinate process was taken down using a sinus shaver. In doing so, the maxillary antrostomy was created. The ethmoid bulla was opened with a small curette. Anterior posterior ethmoidectomy were then carried out using a sinus shaver curette and Blakesley Desmond forceps. Ethmoid cells were verified for relation to the skull base and orbit prior to being entered with the navigation system. Hemostasis was then achieved using Afrin pledgets. The pledgets were then removed bilaterally and Bozena powder was applied bilaterally for absolute hemostasis. The procedure was then terminated. The patient was then awoken and brought to the recovery room in stable condition blood loss less than 30 cc replacement none. Sponge, needle, instrument count were correct at the end of the procedure.
== END 2021-01-06 12:09 | disposition home or self-care (01) ==
LOC: SDC 06:00 → AC 06:01
PROVIDERS: Anesthesiology; PCP Family Medicine Geriatric Medicine; Referring Provider Otolaryngology; Visit Provider Otolaryngology
PROC: (CPT 30520; principal; 2021-01-06 07:00)
DX: J34.2 Deviated nasal septum (principal); J32.8 Other chronic sinusitis; J33.0 Polyp of nasal cavity; I10 Essential (primary) hypertension; E11.9 Type 2 diabetes mellitus without complications; E78.00 Pure hypercholesterolemia, unspecified; E03.9 Hypothyroidism, unspecified; Z79.84 Long term (current) use of oral hypoglycemic drugs; Z79.899 Other long term (current) drug therapy
CPT/HCPCS: 30520; 31255; 31256; 36415; 80048; 82962; 83036; 84443; 88304; 88311; 88312; 93005; J7120; J2405

== ENCOUNTER → 2021-04-03 13:11 | Outpatient (CLI) | payer OTHER, SELFPAY ==
[2021-04-03 15:01] LABS: Absolute Lymphocyte Count 29.08 X10^3/uL (0.83-4.51); Absolute Neutrophil Count 4.3 X10^3/uL (2.0-7.7); Basophil# 0.06 X10^3/uL; Basophil% 0.2 % (0-1); Eosinophil# 0.38 X10^3/uL; Eosinophils% 1.1 % (0-5); Hematocrit 41.8 % (40-54); Hemoglobin 14.6 g/dL (13.0-16.5); Lymphocyte # 29.08 X10^3/ul (0.83-4.51); Lymphocyte % 81.9 % (19-41); Mean Corp Hgb Conc 34.9 g/dL (32-36); Mean Corpuscular Hgb 32.3 pg (27.0-32.0); Mean Corpuscular Volume 92.5 fL (80-94); Mean Platelet Vol. 10.6 fl (6.2-12.0); Monocyte# 1.66 X10^3/uL; Monocyte% 4.7 % (0-10); NRBC Flagged by Analyzer 0 % (0-5); Neutrophil # 4.26 X10^3/uL (2.7-7.7); Neutrophil % 11.9 % (47-70); POSITIVE COUNT YES; POSITIVE DIFFERENTIAL YES; POSITIVE MORPHOLOGY YES; Platelet Count 236 K/mm3 (150-450); RBC Distribution Width CV 13.8 % (11.6-14.6); RBC Distribution Width SD 46.6 fl (35.1-43.9); Red Blood Count 4.52 M/mm3 (4.6-6.2); White Blood Count 35.5 K/mm3 (4.4-11.0)
[2021-04-03 15:07] LABS: Differential Indicated SCAN CRITERIA MET
[2021-04-03 15:13] LABS: ALB/GLOB Ratio 1.4 RATIO (0.9-2.4); AST(SGOT) 12 U/L (15-37); Alanine Aminotransfer ALT/SGPT 30 U/L (16-61); Albumin, Serum 4.1 g/dL (3.2-5.0); Alkaline Phosphatase 81 U/L (45-117); Anion Gap 5 (5-15); BUN 16 mg/dL (7-18); BUN/Creat Ratio 15.7 RATIO (10-20); Calcium,Total 9.3 mg/dL (8.5-10.1); Chloride 100 mmol/L (98-107); Creatinine, Serum 1.02 mg/dL (0.70-1.30); EST Glomerular Filtration Rate 79 mL/min (>60); Est Glom Filt Rate - Afr Amer 95 mL/min (>60); Glucose 269 mg/dL (74-106); Potassium 4.5 mmol/L (3.5-5.1); Protein, Total 7.1 g/dL (6.4-8.2); Sodium Level 134 mmol/L (136-145)
[2021-04-03 15:37] LABS: Anisocytosis RARE; Atypical Lymphocyte 1+ %; Macrocytosis RARE; Platelet Estimate ADEQUATE (ADEQ); Reactive Lymphocyte RARE; Red Cell Morphology N CHROM NORMAL (NORM C&C)
[2021-04-07 14:21] LABS: Pathologist Review Reviewed
== END ==
PROVIDERS: PCP Family Medicine Geriatric Medicine; Visit Provider Family Medicine Geriatric Medicine
DX: E11.9 Type 2 diabetes mellitus without complications (principal); E23.6 Other disorders of pituitary gland; I10 Essential (primary) hypertension
CPT/HCPCS: 36415; 80053; 84403; 84443; 85025

== ENCOUNTER → 2021-10-01 | Outpatient (CLI) | payer OTHER, SELFPAY ==
--- NOTE | 2021-10-01 13:50 | ART_ITS ---
Reason For Study: PVD Procedure A bilateral lower extremity continuous wave Doppler with analog waveform analysis,segmental pressures,and ankle brachial indexes with exercise. Left Segmental Pressures Left brachial= 159mmHg. Left posterior tibial artery = 194mmHg. Left dorsalis pedis artery = 182mmHg. Left digit = 164 mmHg. The left dorsalis pedis waveforms are triphasic. The left posterior tibial artery waveforms are triphasic. Right Segmental Pressures Right brachial= 156mmHg. Right posterior tibial artery = 211mmHg. Right dorsalis pedis artery = 192mmHg. Right digit = 148 mmHg. The right dorsalis pedis waveforms are triphasic. The right posterior tibial artery waveforms are triphasic. Indices The right ankle brachial index by the posterior tibial artery is 1.33. The right ankle brachial index by the dorsalis pedis is 1.21. The right digital-brachial index is .93. The right post exercise ankle brachial index is 1.35. The left ankle brachial index by the posterior tibial artery is 1.22. The left ankle brachial index by the dorsalis pedis is 1.14. The left digital-brachial index is 1.03. The left post exercise ankle brachial index is 1.29. VL/Lower Ext Art Exam w/ Exercise Interpretation Summary Triphasic Doppler waveforms are noted at ankle level bilaterally. Pulse-volume recordings appear satisfactory at all levels bilaterally. Resting ankle-brachial indices are norm al. Digital-brachial indices are normal. The patient ambulated on a treadmill at 1.5 MPH at a 5% inc line for 5 minutes, following which ankle pressures augmented bilaterally, a normal physiological r esponse. There is no evidence of significant arterial occlusive disease in the lower ext remities bilaterally. Ordering Physician: Julito Ambrosio Performed By: Christopher Yeager RVT
== END | disposition home or self-care (01) ==
LOC: CVS 13:48
PROVIDERS: PCP Family Medicine Geriatric Medicine; Referring Provider Podiatrist; Visit Provider Podiatrist
DX: I73.9 Peripheral vascular disease, unspecified (principal)
CPT/HCPCS: 93924

== ENCOUNTER → 2021-10-02 | Outpatient (CLI) | payer OTHER, SELFPAY ==
[2021-10-02 15:40] LABS: Absolute Lymphocyte Count 17.26 X10^3/uL (0.83-4.51); Absolute Neutrophil Count 4.1 X10^3/uL (2.0-7.7); Basophil# 0.07 X10^3/uL; Basophil% 0.3 % (0-1); Eosinophil# 0.22 X10^3/uL; Hematocrit 37.7 % (40-54); Hemoglobin 12.7 g/dL (13.0-16.5); Lymphocyte # 17.26 X10^3/ul (0.83-4.51); Lymphocyte % 75.3 % (19-41); Mean Corp Hgb Conc 33.7 g/dL (32-36); Mean Corpuscular Hgb 32.5 pg (27.0-32.0); Mean Corpuscular Volume 96.4 fL (80-94); Mean Platelet Vol. 10.8 fl (6.2-12.0); Monocyte# 1.23 X10^3/uL; Monocyte% 5.4 % (0-10); NRBC Flagged by Analyzer 0 % (0-5); Neutrophil # 4.09 X10^3/uL (2.7-7.7); Neutrophil % 17.8 % (47-70); POSITIVE DIFFERENTIAL YES; POSITIVE MORPHOLOGY YES; Platelet Count 218 K/mm3 (150-450); RBC Distribution Width CV 13.8 % (11.6-14.6); RBC Distribution Width SD 47.9 fl (35.1-43.9); Red Blood Count 3.91 M/mm3 (4.6-6.2); White Blood Count 22.9 K/mm3 (4.4-11.0)
[2021-10-02 15:46] LABS: Differential Indicated SCAN CRITERIA MET
[2021-10-02 15:49] LABS: Vitamin D,25 Hydroxy 30.4 ng/mL
[2021-10-02 15:56] LABS: ALB/GLOB Ratio 1.5 RATIO (0.9-2.4); AST(SGOT) 17 U/L (15-37); Alanine Aminotransfer ALT/SGPT 25 U/L (16-61); Alkaline Phosphatase 69 U/L (45-117); Anion Gap 5 (5-15); BUN 17 mg/dL (7-18); Calcium,Total 9.4 mg/dL (8.5-10.1); Chloride 105 mmol/L (98-107); Creatinine, Serum 0.95 mg/dL (0.70-1.30); EST Glomerular Filtration Rate 86 mL/min (>60); Est Glom Filt Rate - Afr Amer 103 mL/min (>60); Globulin 2.7 g/dL (2.2-4.2); Glucose 178 mg/dL (74-106); PSA,Total - Annual Screen 0.38 ng/mL (0.00-4.00); Potassium 4.3 mmol/L (3.5-5.1); Protein, Total 6.7 g/dL (6.4-8.2); Sodium Level 138 mmol/L (136-145); Thyroid Stim Hormone (TSH) 0.33 uIU/mL (0.358-3.74)
[2021-10-02 16:13] LABS: Differential Comment SCANNED; Smudge Cells RARE
== END | disposition home or self-care (01) ==
LOC: POLAB3 13:09
PROVIDERS: PCP Family Medicine Geriatric Medicine; Visit Provider Family Medicine Geriatric Medicine
DX: E11.9 Type 2 diabetes mellitus without complications (principal); E23.6 Other disorders of pituitary gland; E55.9 Vitamin D deficiency, unspecified; I10 Essential (primary) hypertension; Z12.5 Encounter for screening for malignant neoplasm of prostate
CPT/HCPCS: 36415; 80053; 82306; 84153; 84403; 84443; 85025; G0103

== ENCOUNTER → 2022-04-02 | Outpatient (CLI) | payer OTHER, SELFPAY ==
[2022-04-02 17:04] LABS: Absolute Lymphocyte Count 21.79 X10^3/uL (0.83-4.51); Absolute Neutrophil Count 4.6 X10^3/uL (2.0-7.7); Basophil# 0.07 X10^3/uL; Basophil% 0.2 % (0-1); Eosinophil# 0.32 X10^3/uL; Eosinophils% 1.1 % (0-5); Hematocrit 38.7 % (40-54); Hemoglobin 13.8 g/dL (13.0-16.5); Lymphocyte # 21.79 X10^3/ul (0.83-4.51); Mean Corp Hgb Conc 35.7 g/dL (32-36); Mean Corpuscular Hgb 33.7 pg (27.0-32.0); Mean Corpuscular Volume 94.4 fL (80-94); Mean Platelet Vol. 10.6 fl (6.2-12.0); Monocyte# 1.78 X10^3/uL; Monocyte% 6.2 % (0-10); NRBC Flagged by Analyzer 0 % (0-5); Neutrophil # 4.64 X10^3/uL (2.7-7.7); Neutrophil % 16.3 % (47-70); POSITIVE DIFFERENTIAL YES; POSITIVE MORPHOLOGY YES; Platelet Count 275 K/mm3 (150-450); White Blood Count 28.7 K/mm3 (4.4-11.0)
[2022-04-02 17:20] LABS: Vitamin D,25 Hydroxy 37.8 ng/mL
[2022-04-02 17:29] LABS: ALB/GLOB Ratio 1.4 RATIO (0.9-2.4); AST(SGOT) 15 U/L (15-37); Alanine Aminotransfer ALT/SGPT 30 U/L (16-61); Albumin, Serum 3.9 g/dL (3.2-5.0); Alkaline Phosphatase 72 U/L (45-117); Anion Gap 4 (5-15); BUN 16 mg/dL (7-18); BUN/Creat Ratio 12.4 RATIO (10-20); Calcium,Total 10.1 mg/dL (8.5-10.1); Chloride 102 mmol/L (98-107); Creatinine, Serum 1.29 mg/dL (0.70-1.30); EST Glomerular Filtration Rate 60 mL/min (>60); Est Glom Filt Rate - Afr Amer 72 mL/min (>60); Globulin 2.7 g/dL (2.2-4.2); Glucose 330 mg/dL (74-106); LDH 172 U/L (87-241); Potassium 4.6 mmol/L (3.5-5.1); Protein, Total 6.6 g/dL (6.4-8.2); Sodium Level 134 mmol/L (136-145); Thyroid Stim Hormone (TSH) 0.35 uIU/mL (0.358-3.74)
[2022-04-02 17:32] LABS: Differential Indicated SCAN CRITERIA MET
[2022-04-02 19:24] LABS: Atypical Lymphocyte 1+ %; Differential Comment SEE COMMENTS; Platelet Estimate ADEQUATE (ADEQ); Reactive Lymphocyte 2+
[2022-04-02 19:25] LABS: Anisocytosis RARE; Macrocytosis RARE; Red Cell Morphology N CHROM NORMAL (NORM C&C)
[2022-04-03 11:33] LABS: Pathologist Review Reviewed
== END | disposition home or self-care (01) ==
LOC: POLAB3 14:14
PROVIDERS: Internal Medicine Medical Oncology; PCP Family Medicine Geriatric Medicine; Visit Provider Family Medicine Geriatric Medicine
DX: E55.9 Vitamin D deficiency, unspecified (principal); C91.10 Chronic lymphocytic leukemia of B-cell type not having achieved remission; E11.65 Type 2 diabetes mellitus with hyperglycemia; I10 Essential (primary) hypertension
CPT/HCPCS: 80053; 82306; 83615; 84443; 85025

== ENCOUNTER → 2022-10-14 | Outpatient (CLI) | payer OTHER, SELFPAY ==
[2022-10-14 16:02] LABS: Absolute Lymphocyte Count 26.18 X10^3/uL (0.83-4.51); Absolute Neutrophil Count 3.5 X10^3/uL (2.0-7.7); Basophil# 0.07 X10^3/uL; Basophil% 0.2 % (0-1); Eosinophil# 0.16 X10^3/uL; Eosinophils% 0.5 % (0-5); Hematocrit 38.9 % (40-54); Hemoglobin 13.1 g/dL (13.0-16.5); Lymphocyte # 26.18 X10^3/ul (0.83-4.51); Mean Corp Hgb Conc 33.7 g/dL (32-36); Mean Corpuscular Hgb 33.2 pg (27.0-32.0); Mean Corpuscular Volume 98.7 fL (80-94); Mean Platelet Vol. 10.9 fl (6.2-12.0); Monocyte# 1.21 X10^3/uL; Monocyte% 3.9 % (0-10); NRBC Flagged by Analyzer 0 % (0-5); Neutrophil # 3.49 X10^3/uL (2.7-7.7); Neutrophil % 11.2 % (47-70); POSITIVE COUNT YES; POSITIVE DIFFERENTIAL YES; POSITIVE MORPHOLOGY YES; Platelet Count 197 K/mm3 (150-450); RBC Distribution Width SD 50.8 fl (35.1-43.9); Red Blood Count 3.94 M/mm3 (4.6-6.2)
[2022-10-14 16:07] LABS: Differential Indicated SCAN CRITERIA MET; White Blood Count 31.2 K/mm3 (4.4-11.0)
[2022-10-14 16:37] LABS: Differential Comment SCANNED
[2022-10-14 16:40] LABS: ALB/GLOB Ratio 1.4 RATIO (0.9-2.4); AST(SGOT) 15 U/L (15-37); Alanine Aminotransfer ALT/SGPT 28 U/L (16-61); Albumin, Serum 3.8 g/dL (3.2-5.0); Alkaline Phosphatase 66 U/L (45-117); Anion Gap 5 (5-15); BUN 13 mg/dL (7-18); BUN/Creat Ratio 11.2 RATIO (10-20); Chloride 105 mmol/L (98-107); Creatinine, Serum 1.16 mg/dL (0.70-1.30); EST Glomerular Filtration Rate 67 mL/min (>60); Est Glom Filt Rate - Afr Amer 82 mL/min (>60); Globulin 2.8 g/dL (2.2-4.2); Glucose 212 mg/dL (74-106); Potassium 4.8 mmol/L (3.5-5.1); Protein, Total 6.6 g/dL (6.4-8.2); Sodium Level 136 mmol/L (136-145); Thyroid Stim Hormone (TSH) 0.29 uIU/mL (0.358-3.74)
[2022-10-15 10:50] LABS: Pathologist Review Reviewed
== END | disposition home or self-care (01) ==
LOC: POLAB3 13:02
PROVIDERS: PCP Family Medicine Geriatric Medicine; Visit Provider Family Medicine Geriatric Medicine
DX: E11.65 Type 2 diabetes mellitus with hyperglycemia (principal); I10 Essential (primary) hypertension
CPT/HCPCS: 36415; 80053; 84443; 85025

== ENCOUNTER → 2023-01-12 | Outpatient (CLI) | payer OTHER, SELFPAY ==
[2023-01-12 13:42] LABS: Absolute Lymphocyte Count 32.03 X10^3/uL (0.83-4.51); Absolute Neutrophil Count 3.8 X10^3/uL (2.0-7.7); Basophil# 0.04 X10^3/uL; Basophil% 0.1 % (0-1); Eosinophil# 0.22 X10^3/uL; Eosinophils% 0.6 % (0-5); Hemoglobin 12.6 g/dL (13.0-16.5); Lymphocyte # 32.03 X10^3/ul (0.83-4.51); Lymphocyte % 83.8 % (19-41); Mean Corp Hgb Conc 32.3 g/dL (32-36); Mean Corpuscular Hgb 32.9 pg (27.0-32.0); Mean Corpuscular Volume 101.8 fL (80-94); Mean Platelet Vol. 9.9 fl (6.2-12.0); Monocyte# 2.03 X10^3/uL; Monocyte% 5.3 % (0-10); NRBC Flagged by Analyzer 0 % (0-5); Neutrophil # 3.81 X10^3/uL (2.7-7.7); POSITIVE COUNT YES; POSITIVE DIFFERENTIAL YES; POSITIVE MORPHOLOGY YES; Platelet Count 204 K/mm3 (150-450); RBC Distribution Width CV 14.5 % (11.6-14.6); RBC Distribution Width SD 53.2 fl (35.1-43.9); Red Blood Count 3.83 M/mm3 (4.6-6.2); White Blood Count 38.2 K/mm3 (4.4-11.0)
[2023-01-12 13:44] LABS: Differential Indicated SCAN CRITERIA MET
[2023-01-12 14:27] LABS: ALB/GLOB Ratio 1.5 RATIO (0.9-2.4); AST(SGOT) 23 U/L (15-37); Alanine Aminotransfer ALT/SGPT 33 U/L (16-61); Albumin, Serum 3.9 g/dL (3.2-5.0); Alkaline Phosphatase 67 U/L (45-117); Anion Gap 9 (5-15); BUN 10 mg/dL (7-18); BUN/Creat Ratio 9.8 RATIO (10-20); Calcium,Total 8.5 mg/dL (8.5-10.1); Chloride 104 mmol/L (98-107); Creatinine, Serum 1.02 mg/dL (0.70-1.30); EST Glomerular Filtration Rate 78 mL/min (>60); Est Glom Filt Rate - Afr Amer 95 mL/min (>60); Globulin 2.6 g/dL (2.2-4.2); Glucose 194 mg/dL (74-106); Protein, Total 6.5 g/dL (6.4-8.2); Sodium Level 137 mmol/L (136-145); Thyroid Stim Hormone (TSH) 0.97 uIU/mL (0.358-3.74)
[2023-01-13 13:44] LABS: Pathologist Review Reviewed
== END | disposition home or self-care (01) ==
PROVIDERS: PCP Family Medicine Geriatric Medicine; Visit Provider Family Medicine Geriatric Medicine
DX: E11.65 Type 2 diabetes mellitus with hyperglycemia (principal); I10 Essential (primary) hypertension
CPT/HCPCS: 36415; 80053; 84443; 85025

== ENCOUNTER → 2023-04-19 | Outpatient (CLI) | payer OTHER, SELFPAY ==
[2023-04-19 11:42] LABS: Hematocrit 40.4 % (40-54); Hemoglobin 13.3 g/dL (13.0-16.5); Mean Corp Hgb Conc 32.9 g/dL (32-36); Mean Corpuscular Hgb 33.3 pg (27.0-32.0); Mean Corpuscular Volume 101.3 fL (80-94); Mean Platelet Vol. 10.2 fl (6.2-12.0); NRBC Flagged by Analyzer 0 % (0-5); POSITIVE COUNT YES; POSITIVE DIFFERENTIAL YES; POSITIVE MORPHOLOGY YES; Platelet Count 182 K/mm3 (150-450); RBC Distribution Width CV 14.4 % (11.6-14.6); RBC Distribution Width SD 52.3 fl (35.1-43.9); Red Blood Count 3.99 M/mm3 (4.6-6.2)
[2023-04-19 11:58] LABS: White Blood Count 42.5 K/mm3 (4.4-11.0)
[2023-04-19 11:59] LABS: Differential Indicated SCAN CRITERIA MET
[2023-04-19 12:08] LABS: Scan Smear per Review Criteria MANUAL DIFF
[2023-04-19 12:13] LABS: Lymphocyte 86 % (19-41); Monocyte 3 % (0-10); Neutrophil-Segmented 11 % (47-70); Total Cells Counted 100 (MANUAL DIFF)
[2023-04-19 12:14] LABS: Absolute Neutrophil Count 4.7 X10^3/uL (2.0-7.7); Neutrophil # 4.68 X10^3/uL (2.7-7.7)
[2023-04-19 12:15] LABS: Absolute Lymphocyte Count 36.58 X10^3/uL (0.83-4.51); Lymphocyte # 36.58 X10^3/ul (0.83-4.51)
[2023-04-19 12:16] LABS: Smudge Cells 2+
[2023-04-19 12:18] LABS: Differential Comment SCANNED; Platelet Estimate ADEQUATE (ADEQ); Red Cell Morphology NORM C+C NORMAL (NORM C&C)
[2023-04-19 12:38] LABS: ALB/GLOB Ratio 1.8 RATIO (0.9-2.4); AST(SGOT) 17 U/L (15-37); Alanine Aminotransfer ALT/SGPT 29 U/L (16-61); Albumin, Serum 4.1 g/dL (3.2-5.0); Alkaline Phosphatase 78 U/L (45-117); Anion Gap 7 (5-15); BUN 15 mg/dL (7-18); BUN/Creat Ratio 15.9 RATIO (10-20); Calcium,Total 9.5 mg/dL (8.5-10.1); Chloride 106 mmol/L (98-107); Creatinine, Serum 0.94 mg/dL (0.70-1.30); EST Glomerular Filtration Rate 85 mL/min (>60); Est Glom Filt Rate - Afr Amer 103 mL/min (>60); Globulin 2.3 g/dL (2.2-4.2); Glucose 196 mg/dL (74-106); Potassium 4.8 mmol/L (3.5-5.1); Protein, Total 6.4 g/dL (6.4-8.2); Sodium Level 138 mmol/L (136-145); Thyroid Stim Hormone (TSH) 2.15 uIU/mL (0.358-3.74)
[2023-04-20 13:07] LABS: Pathologist Review Reviewed
== END | disposition home or self-care (01) ==
LOC: POLAB3 10:58
PROVIDERS: PCP Family Medicine Geriatric Medicine; Visit Provider Family Medicine Geriatric Medicine
DX: E11.65 Type 2 diabetes mellitus with hyperglycemia (principal); I10 Essential (primary) hypertension
CPT/HCPCS: 36415; 80053; 84443; 85025

== ENCOUNTER → 2023-10-21 | Outpatient (CLI) | payer OTHER, SELFPAY ==
[2023-10-21 10:32] LABS: Absolute Lymphocyte Count 46.32 X10^3/uL (0.83-4.51); Basophil# 0.07 X10^3/uL; Basophil% 0.1 % (0-1); Eosinophil# 0.28 X10^3/uL; Eosinophils% 0.5 % (0-5); Hematocrit 39.6 % (40-54); Hemoglobin 13.4 g/dL (13.0-16.5); Lymphocyte # 46.32 X10^3/ul (0.83-4.51); Lymphocyte % 86.7 % (19-41); Mean Corp Hgb Conc 33.8 g/dL (32-36); Mean Corpuscular Hgb 34.2 pg (27.0-32.0); Mean Platelet Vol. 10.7 fl (6.2-12.0); Monocyte# 2.68 X10^3/uL; NRBC Flagged by Analyzer 0 % (0-5); Neutrophil # 3.97 X10^3/uL (2.7-7.7); Neutrophil % 7.6 % (47-70); POSITIVE COUNT YES; POSITIVE DIFFERENTIAL YES; POSITIVE MORPHOLOGY YES; Platelet Count 215 K/mm3 (150-450); RBC Distribution Width SD 51.4 fl (35.1-43.9); Red Blood Count 3.92 M/mm3 (4.6-6.2)
[2023-10-21 10:37] LABS: White Blood Count 53.4 K/mm3 (4.4-11.0)
[2023-10-21 10:38] LABS: Differential Indicated SCAN CRITERIA MET
[2023-10-21 11:01] LABS: Platelet Estimate ADEQUATE (ADEQ); Red Cell Morphology NORM C+C NORMAL (NORM C&C)
[2023-10-21 11:35] LABS: Microalbumin,Random Urine 12.7 mg/L (NO RANGE EST.)
[2023-10-21 12:29] LABS: ALB/GLOB Ratio 1.1 RATIO (0.9-2.4); AST(SGOT) 22 U/L (15-37); Alanine Aminotransfer ALT/SGPT 27 U/L (16-61); Albumin, Serum 4.1 g/dL (3.2-5.0); Alkaline Phosphatase 81 U/L (45-117); Anion Gap 10 (5-15); BUN 25 mg/dL (7-18); BUN/Creat Ratio 18.9 RATIO (10-20); Calcium,Total 9.4 mg/dL (8.5-10.1); Chloride 104 mmol/L (98-107); Cholesterol 54 mg/dL (200); Creatinine, Serum 1.32 mg/dL (0.70-1.30); EST Glomerular Filtration Rate 58 mL/min (>60); Est Glom Filt Rate - Afr Amer 70 mL/min (>60); Globulin 3.6 g/dL (2.2-4.2); Glucose 275 mg/dL (74-106); High Density Lipoprotein 31 mg/dL; PSA,Total - Annual Screen 0.58 ng/mL (0.00-4.00); Potassium 4.4 mmol/L (3.5-5.1); Protein, Total 7.7 g/dL (6.4-8.2); Sodium Level 135 mmol/L (136-145); Thyroid Stim Hormone (TSH) 1.43 uIU/mL (0.358-3.74); Triglycerides 92 mg/dL; Very Low Density Lipoprotein 18 mg/dL (5-40)
[2023-10-21 17:14] LABS: Hemoglobin A1c 6.7 % (3.8-5.6)
[2023-10-22 12:56] LABS: Pathologist Review Reviewed
== END | disposition home or self-care (01) ==
LOC: POLAB3 09:55
PROVIDERS: PCP Family Medicine Geriatric Medicine; Visit Provider Family Medicine Geriatric Medicine
DX: E11.65 Type 2 diabetes mellitus with hyperglycemia (principal); I10 Essential (primary) hypertension; E78.5 Hyperlipidemia, unspecified; Z12.5 Encounter for screening for malignant neoplasm of prostate
CPT/HCPCS: 36415; 80053; 80061; 82043; 83036; 84153; 84443; 85025; G0103

== ENCOUNTER → 2024-04-21 | Outpatient (CLI) | payer OTHER, SELFPAY ==
[2024-04-21 09:54] LABS: Absolute Lymphocyte Count 68.13 X10^3/uL (0.83-4.51); Absolute Neutrophil Count 3.7 X10^3/uL (2.0-7.7); Basophil# 0.08 X10^3/uL; Basophil% 0.1 % (0-1); Eosinophil# 0.22 X10^3/uL; Eosinophils% 0.3 % (0-5); Hematocrit 39.3 % (40-54); Hemoglobin 13.3 g/dL (13.0-16.5); Lymphocyte # 68.13 X10^3/ul (0.83-4.51); Lymphocyte % 91.7 % (19-41); Mean Corp Hgb Conc 33.8 g/dL (32-36); Mean Corpuscular Hgb 33.8 pg (27.0-32.0); Mean Corpuscular Volume 99.7 fL (80-94); Mean Platelet Vol. 9.9 fl (6.2-12.0); Monocyte# 2.08 X10^3/uL; Monocyte% 2.8 % (0-10); NRBC Flagged by Analyzer 0 % (0-5); Neutrophil # 3.66 X10^3/uL (2.7-7.7); Neutrophil % 4.9 % (47-70); POSITIVE COUNT YES; POSITIVE DIFFERENTIAL YES; POSITIVE MORPHOLOGY YES; Platelet Count 190 K/mm3 (150-450); RBC Distribution Width CV 14.6 % (11.6-14.6); RBC Distribution Width SD 52.8 fl (35.1-43.9); Red Blood Count 3.94 M/mm3 (4.6-6.2); White Blood Count 74.3 K/mm3 (4.4-11.0)
[2024-04-21 10:32] LABS: Differential Indicated SCAN CRITERIA MET
[2024-04-21 11:05] LABS: ALB/GLOB Ratio 1.5 RATIO (0.9-2.4); AST(SGOT) 17 U/L (15-37); Alanine Aminotransfer ALT/SGPT 24 U/L (16-61); Albumin, Serum 4.1 g/dL (3.2-5.0); Alkaline Phosphatase 83 U/L (45-117); Anion Gap 8 (5-15); BUN 15 mg/dL (7-18); BUN/Creat Ratio 12.3 RATIO (10-20); Calcium,Total 9.8 mg/dL (8.5-10.1); Chloride 102 mmol/L (98-107); Cholesterol 69 mg/dL (200); Creatinine, Serum 1.22 mg/dL (0.70-1.30); EST Glomerular Filtration Rate 63 mL/min (>60); Est Glom Filt Rate - Afr Amer 77 mL/min (>60); Globulin 2.7 g/dL (2.2-4.2); Glucose 279 mg/dL (74-106); High Density Lipoprotein 34 mg/dL; Potassium 4.5 mmol/L (3.5-5.1); Protein, Total 6.8 g/dL (6.4-8.2); Sodium Level 136 mmol/L (136-145); Triglycerides 111 mg/dL; Very Low Density Lipoprotein 22 mg/dL (5-40)
[2024-04-21 13:09] LABS: Hemoglobin A1c 7.5 % (3.8-5.6)
[2024-04-21 14:12] LABS: Vitamin D,25 Hydroxy 28.8 ng/mL
[2024-04-24 08:54] LABS: Pathologist Review Reviewed
== END | disposition home or self-care (01) ==
LOC: POLAB3 09:34
PROVIDERS: PCP Family Medicine Geriatric Medicine; Visit Provider Family Medicine Geriatric Medicine
DX: E78.5 Hyperlipidemia, unspecified (principal); E11.65 Type 2 diabetes mellitus with hyperglycemia; I10 Essential (primary) hypertension; E55.9 Vitamin D deficiency, unspecified
CPT/HCPCS: 36415; 80053; 80061; 82306; 83036; 84443; 85025

== ENCOUNTER → 2024-10-23 | Outpatient (CLI) | payer OTHER, SELFPAY ==
[2024-10-23 13:26] LABS: Hematocrit 35.6 % (40-54); Hemoglobin 11.8 g/dL (13.0-16.5); Immature Granulocytes Count 0.110 X10^3/uL (0.0-0.0); Mean Corp Hgb Conc 33.1 g/dL (32-36); Mean Corpuscular Volume 103.2 fL (80-94); Mean Platelet Vol. 10.1 fl (6.2-12.0); NRBC Flagged by Analyzer 0 % (0-5); POSITIVE COUNT YES; POSITIVE DIFFERENTIAL YES; POSITIVE MORPHOLOGY YES; Platelet Count 182 K/mm3 (150-450); RBC Distribution Width CV 14.8 % (11.6-14.6); RBC Distribution Width SD 54.4 fl (35.1-43.9); Red Blood Count 3.45 M/mm3 (4.6-6.2); White Blood Count 77.1 K/mm3 (4.4-11.0)
[2024-10-23 13:59] LABS: Differential Indicated SCAN CRITERIA MET
[2024-10-23 14:23] LABS: AST(SGOT) 21 U/L (<=37); Alanine Aminotransfer ALT/SGPT 20 U/L (<=46); Albumin, Serum 4.6 g/dL (3.4-4.8); Alkaline Phosphatase 69 U/L (40-129); Anion Gap 10 (5-15); BUN 18 mg/dL (4-19); BUN/Creat Ratio 17.7 RATIO (10-20); Calcium,Total 9.3 mg/dL (7.6-11.0); Carbon Dioxide 22.2 mmol/L (21.0-32.0); Chloride 105 mmol/L (98-108); Cholesterol 67 mg/dL (<=200); Globulin 1.9 g/dL (2.2-4.2); Glucose 222 mg/dL (70-99); Low Density Lipoprotein Calc. 18 mg/dL; PSA,Total - Annual Screen 0.45 ng/mL (0.02-4.00); Potassium 5.1 mmol/L (3.3-5.1); Triglycerides 73 mg/dL; Very Low Density Lipoprotein 15 mg/dL (5-40); Vitamin D,25 Hydroxy 34.8 ng/mL (30-100); cholesterol:hdl ratio screen 1.97
[2024-10-23 14:50] LABS: Creatinine, Urine (random) 33.80 mg/dL (39.00-259.00); Microalbumin,Random Urine < 12.0 mg/L (<20 mg/L)
[2024-10-23 19:36] LABS: Differential Comment SCANNED
[2024-10-23 21:10] LABS: Xtra Tube Kwok EXTRA TUBE
== END | disposition home or self-care (01) ==
LOC: POLAB3 13:07
PROVIDERS: PCP Family Medicine Geriatric Medicine; Visit Provider Family Medicine Geriatric Medicine
DX: E78.5 Hyperlipidemia, unspecified (principal); E11.22 Type 2 diabetes mellitus with diabetic chronic kidney disease; I10 Essential (primary) hypertension; Z12.5 Encounter for screening for malignant neoplasm of prostate; E55.9 Vitamin D deficiency, unspecified
CPT/HCPCS: 36415; 80053; 80061; 82043; 82306; 82570; 83036; 84153; 84443; 85025; G0103

== ENCOUNTER → 2024-12-11 | Outpatient (CLI) | payer OTHER, SELFPAY ==
--- OUTSIDE RECORDS SUMMARY | 2024-12-11 20:20 | XMS RPT_ITS | CCD ---
Author Organization [facility] Care Team Providers Care Video Journalist Name Role Phone Fausto CARNEY, Dr. Emery Posey Primary Care Provider Fausto CARNEY, Dr. Emery Posey Attending Provider Emery Elizabeth Chi Attending Unavailable Fausto, Emery Chi Primary Care Unavailable Fausto, Emery Chi Primary Care Unavailable Fausto, Emery Chi Attending Unavailable Fausto, Emery Chi Referring Unavailable Giovanny Sanderson Attending Unavailable Fausto, Emery Chi Primary Care Unavailable Fausto, Emery Chi Primary Care Unavailable Fausto, Emery Chi Referring Unavailable Saman GLUER AND WEDGER, Florencia Attending Unavailable Medications Current Medications Medication Drug Class(es) Dates Sig (Normalized) Sig (Original) atorvastatin 10 mg oral tablet (6 sources) HMG-CoA Reductase Inhibitor Start: 07-02-2016 take 4 tablets by mouth at breakfast Atorvastatin 10 MG tablet Active 40 mg PO WITH BREAKFAST July 02, 2016 12:00am Start: 07-02-2016 take 40 mg by mouth at breakfa st Atorvastatin Active 40 MG PO WITH BREAKFAST July 01, 2016 11:00pm lactase 9000 unt oral tablet (6 sources) Start: 07-02-2016 take 1 tablet by mouth three times daily Lactase (Dairy Digestive) 9,000 UNIT tablet Active 4500 U PO THREE TIMES A DAY July 02, 2016 12:00am levothyroxine sodium 0.137 mg oral tablet (7 sources) l-Thyroxi ne Start: 05-19-2023 Levothyroxine 137 mc g tablet Active 125 ug PO DAILY May 19, 2023 3:40pm Start: 05-24-2019 End: 05-19-2023 take 1 tablet by mouth once daily Levothyroxine 137 MCG tablet Discontinued 137 ug PO DAILY May 24, 2019 1:00am May 19, 2023 3:40pm losartan potassium 25 mg oral tablet (6 sources) Angiotensin 2 Receptor Que Start: 07-02-2016 take 4 tablets by mouth once daily Losartan (Cozaar) 25 MG tablet Active 100 mg PO DAILY July 02, 2016 12:00am metFORMIN hydrochloride 1000 mg oral tablet (6 sources) Biguanide Start: 07-02-2016 take 1 tablet by mouth twice daily at mealtime Metformin 1,000 MG tablet Active 1000 mg PO TWICE DAILY WITH MEALS July 02, 2016 12:00am Problems Active Problems Problem Classification Problem Date Documented Da te Episodic/Chronic Disorders of lipid metabolism (1 source) Hyperlipidemia, unspecified; Translations: [Hyperlipidemia, unspecified] Onset: 10-26-2024 Chronic Leukemias (8 sources) Chronic lymphoid leukemia, disease; 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] Onset: 05-22-2024 05-21-2021 Chronic Past or Other Problems Problem Classification Problem Date Documented Da te Episodic/Chronic Fluid and electrolyte disorders (2 sources) Hyperkalemia; Translations: [Hyperkalemia] Onset: 05-22-2024 05-19-2023 Episodic Other aftercare (1 source) Encounter for adjustment and management of vascular access device; Translations: [Encounter for adjustment and management of vascular access device] Onset: 05-22-2024 Episodic Results Test Name Value Interpretation Reference Range Facility CBC W/Diff, Automatedon 10-04 PATH REV Reviewed Normal [facility] Comment on above: Order Comment: CRITI SOFIA VALUE CALLED TO BEBETO GIRON 10/23/24 8159 Shawna Marie. RESULTS READ BACK BY SAME. Result Comment: SEE REPORT IN PATIENT'S EMR AMENDED REPORT 10/31/24 1539 PATH REV previously reported as: August Performed By: #### L 500.4050, L501.9910, L501.9985, L501.9520, L500.4100, L100.0100, L506.1001 #### [facility] [address] [place], [address] Absolute lymphocyte countOrd ered By: Emery Elizabeth on 10-23-2024 Lymphocytes Auto (Unsp spec) [#/Vol] 69.95 10*3/uL High 0.83-4.51 [facility] Absolute neutrophil countOrd ered By: Emery Elizabeth on 10-23-2024 Neutrophils (Bld) [#/Vol] 2.8 10*3/uL 2.0-7.7 [facility] Anion gap in Serum or Plasma Ordered By: Emery Elizabeth on 10-23-2024 Anion gap [Moles/Vol] 10 mmol/L 5-15 [facility] Automated lymphocyte count a s percentage of total leukocytesOrdered By: Emery Elizabeth on 10-23-2024 Lymphocytes/100 WBC Auto (Unsp spec) 90.8 % High 19-41 [facility] BUN/creatinine ratioOrdered By: Emery Elizabeth on 10-23-2024 Urea nitrogen/Creatinine [Mass ratio] 17.7 mg/mg 10-20 [facility] Basophil percentageOrdered B y: Emery Elizabeth on 10-23-2024 Basophils/100 WBC (Bld) 0.1 % 0-1 [facility] Bilirubin, totalOrdered By: Emery Elizabeth on 10-23-2024 Bilirubin [Mass/Vol] 0.51 mg/dL 0.00-1.30 [facility] Blood manual differential co mment interpretation (narrative result)Ordered By: Emery Elizabeth on 10-23-2024 Manual differential comment Dutch (Bld) [Interp] SCANNED [facility] Calculated very low density lipoprotein (VLDL) cholesterol measurementOrdered By: Emery Elizabeth on 10-23-2024 Calculated very low density lipoprotein (VLDL) cholesterol measurement 15 mg/dL 5-40 [facility] Carbon dioxide, total [Moles /volume] in Central venous bloodOrdered By: Emery Elizabeth on 10-23-2024 CO2 [Moles/Vol] 22.2 mmol/L 21.0-32.0 [facility] Chloride assayOrdered By: Felix Elizabeth on 10-23-2024 Chloride [Moles/Vol] 105 mmol/L 98-108 [facility] Comprehensive Metabolic Prof ilon 10-23-2024 Albumin [Mass/Vol] 4.6 g/dL Normal 3.4-4.8 [facility] Comment on above: Performed By: #### L 501.9985, L506.1000, L500.4050, L501.9520, L500.4100, L100.0100 #### [facility] [address] [place], [address] Albumin/Globulin [Mass ratio] 2.5 {ratio} High 0.9-2.4 [facility] Comment on above: Performed By: #### L [id number], L506.1000, L500.4050, L501.9520, L500.4100, L100.0100 #### [facility] [address] [place], [address] ALK PHOS 69 U/L Normal 40-129 [facility] Comment on above: Performed By: #### L 501.9985, L506.1000, L500.4050, L501.9520, L500.4100, L100.0100 #### [facility] [address] [place], [address] ALT [Catalytic activity/Vol] 20 U/L Normal <=46 [facility] Comment on above: Performed By: #### L 501.9985, L506.1000, L500.4050, L501.9520, L500.4100, L100.0100 #### [facility] [address] [place], [address] AST [Catalytic activity/Vol] 21 U/L Normal <=37 [facility] Comment on above: Performed By: #### L 501.9985, L506.1000, L500.4050, L501.9520, L500.4100, L100.0100 #### [facility] [address] [place], [address] Bilirubin [Mass/Vol] 0.51 mg/dL Normal 0.00-1.30 [facility] Comment on above: Performed By: #### L 501.9985, L506.1000, L500.4050, L501.9520, L500.4100, L100.0100 #### [facility] [address] [place], [address] BUN/CRE 17.7 RATIO Normal 10-20 [facility] Comment on above: Performed By: #### L 501.9985, L506.1000, L500.4050, L501.9520, L500.4100, L100.0100 #### [facility] [address] [place], [address] Calcium [Mass/Vol] 9.3 mg/dL Normal 7.6-11.0 [facility] Comment on above: Performed By: #### L 501.9985, L506.1000, L500.4050, L501.9520, L500.4100, L100.0100 #### [facility] [address] [place], [address] Chloride [Moles/Vol] 105 mmol/L Normal 98-108 [facility] Comment on above: Performed By: #### L 501.9985, L506.1000, L500.4050, L501.9520, L500.4100, L100.0100 #### [facility] [address] [place], [address] CO2 [Moles/Vol] 22.2 mmol/L Normal 21.0-32.0 [facility] Comment on above: Performed By: #### L 501.9985, L506.1000, L500.4050, L501.9520, L500.4100, L100.0100 #### [facility] [address] [place], [address] Creatinine [Mass/Vol] 1.02 mg/dL Normal 0.70-1.20 [facility] Comment on above: Performed By: #### L 501.9985, L506.1000, L500.4050, L501.9520, L500.4100, L100.0100 #### [facility] [address] [place], [address] GAP 10 Normal 5-15 [facility] Comment on above: Performed By: #### L 501.9985, L506.1000, L500.4050, L501.9520, L500.4100, L100.0100 #### [facility] [address] [place], [address] GFR/1.73 sq M.predicted among non-blacks MDRD (S/P/Bld) [Vol rate/Area] 82 mL/min/{1.73_m2} Normal >60 [facility] Comment on above: Result Comment: mL/m in/1.73m2 CKD-EPI Creatinine Equation (2020) Performed By: #### L 501.9985, L506.1000, L500.4050, L501.9520, L500.4100, L100.0100 #### [facility] [address] [place], [address] Globulin (S) [Mass/Vol] 1.9 g/dL Low 2.2-4.2 [facility] Comment on above: Performed By: #### L 501.9985, L506.1000, L500.4050, L501.9520, L500.4100, L100.0100 #### [facility] [address] [place], [address] Glucose [Mass/Vol] 222 mg/dL High 70-99 [facility] Comment on above: Performed By: #### L 501.9985, L506.1000, L500.4050, L501.9520, L500.4100, L100.0100 #### [facility] [address] [place], [address] Potassium [Moles/Vol] 5.1 mmol/L Normal 3.3-5.1 [facility] Comment on above: Performed By: #### L 501.9985, L506.1000, L500.4050, L501.9520, L500.4100, L100.0100 #### [facility] [address] [place], [address] Sodium [Moles/Vol] 136 mmol/L Normal 133-145 [facility] Comment on above: Performed By: #### L 501.9985, L506.1000, L500.4050, L501.9520, L500.4100, L100.0100 #### [facility] [address] [place], [address] T PROT 6.4 g/dL Normal 5.9-8.4 [facility] Comment on above: Performed By: #### L 501.9985, L506.1000, L500.4050, L501.9520, L500.4100, L100.0100 #### [facility] [address] [place], [address] Urea nitrogen [Mass/Vol] 18 mg/dL Normal 4-19 [facility] Comment on above: Performed By: #### L 501.9985, L506.1000, L500.4050, L501.9520, L500.4100, L100.0100 #### [facility] [address] [place], [address] Eosinophil percentageOrdered By: Emery Fausto on 10-23-2024 Eosinophils/100 WBC (Bld) 0.2 % 0-5 [facility] Erythrocyte distribution wid th ratioOrdered By: Emery Zuritaok on 10-23-2024 Erythrocyte distribution width (RBC) [Ratio] 14.8 % High 11.6-14.6 [facility] Erythrocyte distribution wid th standard deviationOrdered By: Emery Fausto on 10-23-2024 Erythrocyte distribution width (RBC) [Ratio] 54.4 fl High 35.1-43.9 [facility] Glomerular filtration rate ( GFR) estimation/1.73 sq m using serum, plasma, or whole bOrdered By: Emery Elizabeth 10-23-2024 GFR/1.73 sq M.predicted among non-blacks MDRD (S/P/Bld) [Vol rate/Area] 82 mL/min/{1.73_m2} >60 [facility] Comment on above: mL/min/1.73m2 CKD-EP I Creatinine Equation (2020) Hematocrit Auto (Bld) [Volum e fraction]Ordered By: Emery Elizabeth on 10-23-2024 Hematocrit (Bld) [Volume fraction] 35.6 % Low 40-54 [facility] Hemoglobin A1con 10-23-2024 HbA1c (Bld) [Mass fraction] 7.3 % High <=5.6 [facility] Comment on above: Result Comment: Norm al < 5.7 % Prediabetic 5.7 - 6.4 % Diabetic >or= 6.5 % Please note range changes. Performed By: #### L 500.4050, L501.9910, L501.9985, L501.9520, L500.4100, L100.0100, L506.1001 #### [facility] [address] [place], [place], [address] Hemoglobin A1c percentageOrd ered By: Emery Elizabeth on 10-23-2024 HbA1c (Bld) [Mass fraction] 7.3 % High <5.7 [facility] Comment on above: Normal < 5.7 % Predi abetic 5.7 - 6.4 % Diabetic >or= 6.5 % Please note range changes. Hemoglobin measurementOrdere d By: Emery Elizabeth on 10-23-2024 Hemoglobin (Bld) [Mass/Vol] 11.8 g/dL Low 13.0-16.5 [facility] Immature granulocytes/100 WB C Auto (Bld)Ordered By: Emery Elizabeth on 10-23-2024 Immature granulocytes/100 WBC (Bld) 0.100 % 0.0-0.9 [facility] Comment on above: IG% - Immature Granu locytes (promyelocytes, myelocytes and metamyelocytes) > 1% indicates that a LEFT SHIFT is Present. LDL calc ser/plasOrdered By: Emery Elizabeth on 10-23-2024 Cholesterol in LDL [Mass/Vol] 18 mg/dL [facility] Comment on above: Afxvjuagva=276-342 m g/dL & Higher Kttl=372 mg/dL or greater Laboratory - Chemistry and C hemistry - challengeOrdered By: Emery Elizabeth on 10-23-2024 AST [Catalytic activity/Vol] 21 U/L <38 [facility] Lipid Profileon 10-23-2024 CHOL:HDL 1.97 Normal [facility] Comment on above: Performed By: #### L 501.9985, L506.1000, L500.4050, L501.9520, L500.4100, L100.0100 #### [facility] [address] [place], [address] Cholesterol [Mass/Vol] 67 mg/dL Normal <=200 [facility] Comment on above: Result Comment: Chol esterol level, Desirable <200 mg/dL Borderline high cholesterol 200-239 mg/dL High cholesterol >=240 mg/dL Recommendations of the NCEP Adult Treatment Panel for the following risk-cutoff thresholds for the [place] population. Performed By: #### L 501.9985, L506.1000, L500.4050, L501.9520, L500.4100, L100.0100 #### [facility] [address] [place], [address] Cholesterol in HDL [Mass/Vol] 34 mg/dL Low [facility] Comment on above: Result Comment: Francine onal Cholesterol Education Program (NCEP) guidelines: <40 mg/dL: Low HDL-cholesterol (major risk factor for CHD) >= 60 mg/dL: High HDL-cholesterol (negative risk factor for CHD) HDL-cholesterol is affected by a number of factors, e.g. smoking, exercise, hormones, sex and age. Performed By: #### L 501.9985, L506.1000, L500.4050, L501.9520, L500.4100, L100.0100 #### [facility] [address] [place], [address] Cholesterol in LDL [Mass/Vol] 18 mg/dL Normal [facility] Comment on above: Result Comment: Bord jjeuws=148-070 mg/dL Higher Gsqo=548 mg/dL or greater Performed By: #### L 501.9985, L506.1000, L500.4050, L501.9520, L500.4100, L100.0100 #### [facility] [address] [place], [address] Cholesterol in VLDL [Mass/Vol] 15 mg/dL Normal 5-40 [facility] Comment on above: Performed By: #### L 501.9985, L506.1000, L500.4050, L501.9520, L500.4100, L100.0100 #### [facility] [address] [place], [address] (990) Triglyceride [Mass/Vol] 73 mg/dL Normal [facility] Comment on above: Result Comment: The drugs N-Acetylcysteine and Metamizole may falsely depress this assay. Normal range: <150 mg/dL Borderline High: 150-199 mg/dL High: 200-499 mg/dL Very High: >500 mg/dL Performed By: #### L 501.9985, L506.1000, L500.4050, L501.9520, L500.4100, L100.0100 #### [facility] [address] [place], [place], [id number] MCV (mean corpuscular volume ) determinationOrdered By: Emery Elizabeth on 10-23-2024 MCV (RBC) [Entitic vol] 103.2 fL High 80-94 [facility] Mean corpuscular hemoglobin (MCH) determinationOrdered By: Emery Elizabeth on 10-23-2024 MCH (RBC) [Entitic mass] 34.2 pg High 27.0-32.0 [facility] Mean corpuscular hemoglobin concentration (MCHC) determinationOrdered By: Emery Elizabeth on 10-23-2024 MCHC (RBC) [Mass/Vol] 33.1 g/dL 32-36 [facility] Mean platelet volume determi nationOrdered By: Emery Elizabeth 10-23-2024 Platelet mean volume (Bld) [Entitic vol] 10.1 fL 6.2-12.0 [facility] Microalb:Creat Ratio,Random URon 10-23-2024 Creatinine [Mass/Vol] 33.80 mg/dL Low 39.00-259.00 [facility] Comment on above: Performed By: #### L 502.0250 #### [facility] [address] [place], [place], [address] MALB:CREAT UNABLE TO CALCULATE Normal <30 mg/g CRE [facility] Comment on above: Performed By: #### L 502.0250 #### [facility] [address] [place], [place], [address] MICROALBUMIN,UR < 12.0 Normal <20 mg/L [facility] Comment on above: Performed By: #### L 502.0250 #### [facility] [address] [place], [place], [id number] Microalbumin/creat ratio urO rdered By: Emery Elizabeth on 10-23-2024 Urine microalbumin/creatinine ratio measurement UNABLE TO CALCULATE mg/g CRE <30 [facility] Monocyte percentageOrdered B y: Emery Elizabeth on 10-23-2024 Monocytes/100 WBC (Bld) 5.1 % 0-10 [facility] Neutrophil percentageOrdered By: Emery Elizabeth on 10-23-2024 Neutrophils/100 WBC (Bld) 3.7 % Low 47-70 [facility] Nucleated red blood cell per centageOrdered By: Emery Elizabeth on 10-23-2024 Nucleated RBC/100 WBC (Bld) [Ratio] 0 % 0-5 [facility] PSA,Total - Annual Screenon 10-23-2024 PSA,TOT SCREEN 0.45 ng/mL Normal 0.02-4.00 [facility] Comment on above: Result Comment: This test was performed using the [employer] tPSA method. Measured values of a patient??sample can vary depending on the testing procedure used. PSA values determined on patient samples by different testing procedures cannot be used interchangeably. If there is a change in PSA assays while monitoring therapy, sequential testing should be performed to confirm baseline values. Performed By: #### L 501.9985, L506.1000, L500.4050, L501.9520, L500.4100, L100.0100 #### [facility] [address] [place], [address] Platelet countOrdered By: Felix Elizabeth on 10-23-2024 Platelets (Bld) [#/Vol] 182 10*3/uL 150-450 [facility] Platelet estimateOrdered By: Emery Elizabeth on 10-23-2024 Platelets LM Ql (Bld) ADEQUATE ADEQ [facility] Potassium measurement (mass/ volume)Ordered By: Emery Elizabeth on 10-23-2024 Potassium (Unsp spec) [Mass/Vol] 5.1 mmol/L 3.3-5.1 [facility] RBC Auto (Bld) [#/Vol]Ordere d By: Emery Elizabeth on 10-23-2024 RBC (Bld) [#/Vol] 3.45 10*6/uL Low 4.6-6.2 [facility] Random urine creatinine marily urement (mass/volume)Ordered By: Emery Elizabeth on 10-23-2024 Creatinine Unsp time (U) [Mass/Vol] 33.80 mg/dL Low 39.00-259.00 [facility] Review by pathologistOrdered By: Emery Elizabeth on 10-23-2024 Pathologist review Dutch (Unsp spec) [Interp] August [facility] Screening total cholesterol/ high density lipoprotein (HDL) cholesterol ratioOrdered By: Emery Elizabeth 10-23-2024 Cholesterol.total/Choles terol in HDL [Mass ratio] 1.97 {ratio} [facility] Serum creatinine measurement (mass/volume)Ordered By: Emery Elizabeth on 10-23-2024 Creatinine [Mass/Vol] 1.02 mg/dL 0.70-1.20 [facility] Serum globulin measurementOr dered By: Emery Elizabeth on 10-23-2024 Globulin (S) [Mass/Vol] 1.9 g/dL Low 2.2-4.2 [facility] Serum glucose measurement (m ass/volume)Ordered By: Emery Elizabeth on 10-23-2024 Glucose [Mass/Vol] 222 mg/dL High 70-99 [facility] Serum or plasma alanine harris otransferase (ALT) measurementOrdered By: Emery Fausto 10-23-2024 ALT [Catalytic activity/Vol] 20 U/L <47 [facility] Serum or plasma albumin marily urement (mass/volume)Ordered By: Emery Fausto 10-23-2024 Albumin [Mass/Vol] 4.6 g/dL 3.4-4.8 [facility] Serum or plasma albumin/glob ulin mass ratioOrdered By: Emery Fausto 10-23-2024 Albumin/Globulin [Mass ratio] 2.5 {ratio} High 0.9-2.4 [facility] Serum or plasma alkaline timi sphatase measurementOrdered By: Emery Fausto 10-23-2024 ALP [Catalytic activity/Vol] 69 U/L 40-129 [facility] Serum or plasma calcium marily urement (mass/volume)Ordered By: Emery Fausto 10-23-2024 Calcium [Mass/Vol] 9.3 mg/dL 7.6-11.0 [facility] Serum or plasma cholesterol in HDL measurement (mass/volume)Ordered By: Emery Fausto 10-23-2024 Cholesterol in HDL [Mass/Vol] 34 mg/dL Low >40 [facility] Comment on above: National Cholesterol Education Program (NCEP) guidelines:<40 mg/dL: Low HDL-cholesterol (major risk factor for CHD)>= 60 mg/dL: High HDL-cholesterol (negative risk factor for CHD)HDL-cholesterol is affected by a number of factors, e.g. smoking, exercise, hormones, sex and age. Serum or plasma cholesterol measurement (mass/volume)Ordered By: Emery Fausto 10-23-2024 Cholesterol [Mass/Vol] 67 mg/dL <201 [facility] Comment on above: Cholesterol level, D esirable <200 mg/dLBorderline high cholesterol 200-239 mg/dLHigh cholesterol >=240 mg/dLRecommendations of the NCEP Adult Treatment Panel for the following risk-cutoff thresholds for the [place] population. Serum or plasma urea nitroge n measurement (mass/volume)Ordered By: Emery Elizabeth 10-23-2024 Urea nitrogen [Mass/Vol] 18 mg/dL 4-19 [facility] Sodium levelOrdered By: Emery Elizabeth on 10-23-2024 Sodium [Moles/Vol] 136 mmol/L 133-145 [facility] TSH DL <= 0.005 mIU/L QnOrde red By: Emery Elizabeth on 10-23-2024 TSH Qn 1.080 uIU/mL 0.300-4.200 [facility] Thyroid Stim Hormone (TSH)on 10-23-2024 TSH 1.080 uIU/mL Normal 0.300-4.200 [facility] Comment on above: Performed By: #### L 501.9985, L506.1000, L500.4050, L501.9520, L500.4100, L100.0100 #### [facility] [address] [place], [address] Total proteinOrdered By: Emery Elizabeth on 10-23-2024 Protein [Mass/Vol] 6.4 g/dL 5.9-8.4 [facility] Triglycerides measurementOrd ered By: Emery Elizabeth on 10-23-2024 Triglyceride [Mass/Vol] 73 mg/dL <199 [facility] Comment on above: The drugs N-Acetylcy steine and Metamizole may falsely depress this assay. Normal range: <150 mg/dLBorderline High: 150-199 mg/dLHigh: 200-499 mg/dLVery High: >500 mg/dL Urine albumin measurement [facility] detection limit of 20 mg/L or less (mass/volume)Ordered By: Emery Elizabeth on 10-23-2024 Albumin DL <= 20 mg/L (U) [Mass/Vol] < 12.0 mg/L <20 mg/L [facility] Vitamin D,25 Hydroxyon 10-23 Vitamin D 25-OH 34.8 ng/mL Normal 30-100 [facility] Comment on above: Result Comment: Blessing min D Status Deficiency: <20 ng/mL (50nmol/L) Insufficiency: 20-30 ng/mL (50-75 nmol/L) Sufficiency: 30-100 ng/mL (75-250 nmol/L) Toxicity: >100 ng/mL (>250 nmol/L) Performed By: #### L 501.9985, L506.1000, L500.4050, L501.9520, L500.4100, L100.0100 #### [facility] [address] [place], [address] White blood cell (WBC) count Ordered By: Emery Elizabeth on 10-23-2024 WBC (Bld) [#/Vol] 77.1 10*3/uL High 4.4-11.0 [facility] CBC W/Diff, Automatedon 05-06 PATH REV Reviewed Normal [facility] Comment on above: Result Comment: Abso lute lymphocytosis suggestive of low grade lympho- proliferative disorder. MACROCYTOSIS. Clinical correlation is necessary. Titi Mullins M.D. 05/24/24 AMENDED REPORT 05/24/24 0908 PATH REV previously reported as: August Performed By: #### L 501.9985, L506.1000, L500.4050, L501.9520, L500.4100, L100.0100 #### [facility] [address] [place], [address] Comprehensive Metabolic Prof ilon 05-22-2024 Albumin [Mass/Vol] 4.3 g/dL Normal 3.2-5.0 [facility] Comment on above: Performed By: #### L 501.9985, L506.1000, L500.4050, L501.9520, L500.4100, L100.0100 #### [facility] [address] [place], [address] Albumin/Globulin [Mass ratio] 1.6 {ratio} Normal 0.9-2.4 [facility] Comment on above: Performed By: #### L 501.9985, L506.1000, L500.4050, L501.9520, L500.4100, L100.0100 #### [facility] [address] [place], [address] ALK P 84 U/L Normal 45-117 [facility] Comment on above: Performed By: #### L 501.9985, L506.1000, L500.4050, L501.9520, L500.4100, L100.0100 #### [facility] [address] [place], [address] ALT [Catalytic activity/Vol] 29 U/L Normal 16-61 [facility] Comment on above: Performed By: #### L 501.9985, L506.1000, L500.4050, L501.9520, L500.4100, L100.0100 #### [facility] [address] [place], [address] AST [Catalytic activity/Vol] 25 U/L Normal 15-37 [facility] Comment on above: Performed By: #### L 501.9985, L506.1000, L500.4050, L501.9520, L500.4100, L100.0100 #### [facility] [address] [place], [address] Bilirubin [Mass/Vol] 1.30 mg/dL High 0.20-1.00 [facility] Comment on above: Result Comment: For patients on eltrombopag therapy, use of Dimension Sabine TBIL is not recommended. Performed By: #### L 501.9985, L506.1000, L500.4050, L501.9520, L500.4100, L100.0100 #### [facility] [address] [place], [address] BUN/CRE 10.8 RATIO Normal 10-20 [facility] Comment on above: Performed By: #### L 501.9985, L506.1000, L500.4050, L501.9520, L500.4100, L100.0100 #### [facility] [address] [place], [address] CA,Total 9.7 mg/dL Normal 8.5-10.1 [facility] Comment on above: Performed By: #### L 501.9985, L506.1000, L500.4050, L501.9520, L500.4100, L100.0100 #### [facility] [address] [place], [address] Chloride [Moles/Vol] 100 mmol/L Normal 98-107 [facility] Comment on above: Performed By: #### L 501.9985, L506.1000, L500.4050, L501.9520, L500.4100, L100.0100 #### [facility] [address] [place], [address] CO2 [Moles/Vol] 27.0 mmol/L Normal 21.0-32.0 [facility] Comment on above: Performed By: #### L 501.9985, L506.1000, L500.4050, L501.9520, L500.4100, L100.0100 #### [facility] [address] [place], [address] Creatinine [Mass/Vol] 1.58 mg/dL High 0.70-1.30 [facility] Comment on above: Result Comment: The validity of the calculated GFR GFRAA in patients over 70 years has not been determined. Clinical correlation is essential. Performed By: #### L 501.9985, L506.1000, L500.4050, L501.9520, L500.4100, L100.0100 #### [facility] [address] [place], [address] ECRCL 52.68 ml/min Normal [facility] Comment on above: Performed By: #### L 501.9985, L506.1000, L500.4050, L501.9520, L500.4100, L100.0100 #### [facility] [address] [place], [address] EST GFR - AA 57 mL/min Low >60 [facility] Comment on above: Result Comment: Afri can Croatian GFR Calc Performed By: #### L 501.9985, L506.1000, L500.4050, L501.9520, L500.4100, L100.0100 #### [facility] [address] [place], [address] GAP 6 Normal 5-15 [facility] Comment on above: Performed By: #### L 501.9985, L506.1000, L500.4050, L501.9520, L500.4100, L100.0100 #### [facility] [address] [place], [address] GFR/1.73 sq M.predicted among non-blacks MDRD (S/P/Bld) [Vol rate/Area] 47 mL/min/{1.73_m2} Low >60 [facility] Comment on above: Result Comment: Non- GFR Calc Performed By: #### L 501.9985, L506.1000, L500.4050, L501.9520, L500.4100, L100.0100 #### [facility] [address] [place], [address] Globulin (S) [Mass/Vol] 2.7 g/dL Normal 2.2-4.2 [facility] Comment on above: Performed By: #### L 501.9985, L506.1000, L500.4050, L501.9520, L500.4100, L100.0100 #### [facility] [address] [place], [address] Glucose [Mass/Vol] 268 mg/dL High 74-106 [facility] Comment on above: Result Comment: Gluc ose result greater than or equal to 200 mg/dL suggests DIABETES MELLITUS per A.D.A. criteria. Performed By: #### L 501.9985, L506.1000, L500.4050, L501.9520, L500.4100, L100.0100 #### [facility] [address] [place], [address] Potassium [Moles/Vol] 5.0 mmol/L Normal 3.5-5.1 [facility] Comment on above: Performed By: #### L 501.9985, L506.1000, L500.4050, L501.9520, L500.4100, L100.0100 #### [facility] [address] [place], [address] Sodium [Moles/Vol] 133 mmol/L Low 136-145 [facility] Comment on above: Performed By: #### L 501.9985, L506.1000, L500.4050, L501.9520, L500.4100, L100.0100 #### [facility] [address] [place], [address] T PROT 7.0 g/dL Normal 6.4-8.2 [facility] Comment on above: Performed By: #### L 501.9985, L506.1000, L500.4050, L501.9520, L500.4100, L100.0100 #### [facility] [address] [place], [address] Urea nitrogen [Mass/Vol] 17 mg/dL Normal 7-18 [facility] Comment on above: Performed By: #### L 501.9985, L506.1000, L500.4050, L501.9520, L500.4100, L100.0100 #### [facility] [address] [place], [address] LDHon 05-22-2024 LDH 163 U/L Normal 87-241 [facility] Comment on above: Order Comment: CRITI SOFIA VALUE CALLED TO YAHIR BAKER 04/21/24 103Marla Marie. RESULTS READ BACK BY SAME. Performed By: #### L 501.9985, L506.1000, L500.4050, L501.9520, L500.4100, L100.0100 #### [facility] [address] [place], [address] Oncology Visit Reporton 05-06 Oncology Visit Report [facility] [address] [place] [address] OFFICE VISIT Date of Service: 05/22/24 1614 MR#: [id number] Acct: [id number] Name: SAMUEL BRODERICK Rep #: [id number] : 1960 From: Florencia Davison NP [facility] Age/Sex: 63/M Location: [facility] Status: Signed HPI Subjective Date of Service 05/22/24 Chief Complaint F/u for CLL History of Present Illness 63-year-old man with CLL Avila stage 0 diagnosed in March 2014. He is currently on observation. Interval History The patient is presenting to clinic accompanied by spouse for an annual visit. Specifically denies enlarged lymph nodes, dysphagia, CP, palpitations, cough, SOB, abd pain, swelling/pain of his extremities, any episodes of bleeding/bruising. Good appetite. Intentionally losing weight, walking 2.5 mi/day and limiting portions. Reports all screenings are up to date except annual total body skin exam. [facility] Medical History Wears glasses Cancer Thyroid disease High cholesterol Dietary restriction Heartburn Non-smoker Leg cramps History of stress test Hypertension Fracture, tibia COLONOSCOPY Hypothyroidism Diabetes Surgical History History of tonsillectomy History of cataract extraction Social History Smoking Status: Never smoker ROS ROS Narrative Negative except as documented in the interval HPI Intake Vital Signs 05/19/23 14:40 05/22/24 16:16 05/22/24 16:18 Height 6 ft 1 in 6 ft 1 in 6 ft 1 in Weight: 194 lb 7 oz BMI 25.6 BP 147/77 H Blood Pressure Location Lt brachial Position Sitting Respiration 18 Pulse 67 Pulse Source Monitor Temp 97.7 F L Temperature Source Temporal Artery Pulse Oximetry (%) 97 Oxygen Delivery Method room air Intake Is patient in pain?: No Allergies No Known Allergies Allergy (Verified 05/22/24 16:14) Medications ???Medication ???Instructions ???Recorded ???Confirmed ???Type atorvastatin 10 mg tablet 40 mg PO BREAKFAST 07/02/16 History lactase 9,000 unit tablet (Dairy 4,500 unit PO TID 07/02/16 5 History Digestive) losartan 25 mg tablet (Cozaar) 100 mg PO DAILY 07/02/16 05/22/24 History metformin 1,000 mg tablet 1,000 mg PO BIDCM 07/02/16 5 History levothyroxine 137 mcg tablet 125 mcg PO DAILY 05/19/23 05/22/24 History Have you fallen in the past year?: No Central Venous Access Central Venous Access: No Laboratory Tests 05/22/24 15:22 WBC 74.9 H* Hgb 13.7 Hct 40.5 Plt Count 221 Absolute Neuts (auto) 3.5 Absolute Lymphs (auto) 67.81 H Sodium 133 L Potassium 5.0 Chloride 100 BUN 17 Creatinine 1.58 H Glucose 268 H Total Bilirubin 1.30 H AST 25 ALT 29 Alkaline Phosphatase 84 Lactate Dehydrogenase 163 Exam Physical Exam Const alert, oriented x3 and no apparent distress General Appearance: comfortable HEENT normocephalic Eyes conjunctivae normal and no scleral icterus Neck supple Lymph Lymphatic: no lymphadenopathy noted Chest inspection of chest normal Resp normal respiratory effort and clear to auscultation bilaterally Cardio regular rate, regular rhythm, S1 normal heart sound and S2 normal heart sound GI normal to inspection, nondistended, normoactive bowel sounds Back/Spine no CVA tenderness and thoracic and lumbar spine normal to inspection Extremity normal to inspection and no clubbing, cyanosis or edema Skin no rashes or lesions noted Neuro oriented x3, CN's II-XII intact bilaterally and moves all extremities Psych mental status grossly normal Coding Level of Care Code Off vis,est,level 4 Exam Problem Focused Diagnoses Leukemia, lymphocytic, chronic C91.10 Assessment and Plan Assessment and Plan (1) Leukemia, lymphocytic, chronic: Status: Chronic Plan: No indication for treatment at this time. Patient to continue observation. He was offered 6-month follow-up however elected 12-month follow-up as his PCP does check a CBC periodically through the year. Orders: Orders CBC W/Diff, Automated 364 Days C91.10 - Chronic lymphocytic leukemia of B-cell type not having achieved remission Comprehensive Metabolic Profil 364 Days C91.10 - Chronic lymphocytic leukemia of B-cell type not having achieved remission LDH 364 Days C91.10 - Chronic lymphocytic leukemia of B-cell type not having achieved remission Clinical Quality Measures Falls Risk Screening/Assistive Devices Have you fallen in the past year?: No 05/22/24 1651 Date Florencia Saman [facility] (more content not included)... Normal [facility] CBC W/Diff, Automatedon 04-06 PATH REV Reviewed Normal [facility] Comment on above: Order Comment: CRITI SOFIA VALUE CALLED TO YAHIR BAKER 04/21/24 1031 Shawna Marie. RESULTS READ BACK BY SAME. Result Comment: Abso lute lymphocytosis suggestive of low grade lympho- proliferative disorder. MACROCYTOSIS Clinical correlation is necessary. Titi Mullins M.D. 04/24/24 AMENDED REPORT 04/24/24 0854 PATH REV previously reported as: August Performed By: #### L 501.9985, L506.1000, L500.4050, L501.9520, L500.4100, L100.0100 #### [facility] [address] [place], [address] Comprehensive Metabolic Prof ilon 04-21-2024 Albumin [Mass/Vol] 4.1 g/dL Normal 3.2-5.0 [facility] Comment on above: Performed By: #### L 501.9985, L506.1000, L500.4050, L501.9520, L500.4100, L100.0100 #### [facility] [address] [place], [address] Albumin/Globulin [Mass ratio] 1.5 {ratio} Normal 0.9-2.4 [facility] Comment on above: Performed By: #### L 501.9985, L506.1000, L500.4050, L501.9520, L500.4100, L100.0100 #### [facility] [address] [place], [address] ALK P 83 U/L Normal 45-117 [facility] Comment on above: Performed By: #### L 501.9985, L506.1000, L500.4050, L501.9520, L500.4100, L100.0100 #### [facility] [address] [place], [address] ALT [Catalytic activity/Vol] 24 U/L Normal 16-61 [facility] Comment on above: Performed By: #### L 501.9985, L506.1000, L500.4050, L501.9520, L500.4100, L100.0100 #### [facility] [address] [place], [address] AST [Catalytic activity/Vol] 17 U/L Normal 15-37 [facility] Comment on above: Performed By: #### L 501.9985, L506.1000, L500.4050, L501.9520, L500.4100, L100.0100 #### [facility] [address] [place], [address] Bilirubin [Mass/Vol] 1.00 mg/dL Normal 0.20-1.00 [facility] Comment on above: Result Comment: For patients on eltrombopag therapy, use of Dimension Sabine TBIL is not recommended. Performed By: #### L 501.9985, L506.1000, L500.4050, L501.9520, L500.4100, L100.0100 #### [facility] [address] [place], [address] BUN/CRE 12.3 RATIO Normal 10-20 [facility] Comment on above: Performed By: #### L 501.9985, L506.1000, L500.4050, L501.9520, L500.4100, L100.0100 #### [facility] [address] [place], [address] CA,Total 9.8 mg/dL Normal 8.5-10.1 [facility] Comment on above: Performed By: #### L 501.9985, L506.1000, L500.4050, L501.9520, L500.4100, L100.0100 #### [facility] [address] [place], [address] Chloride [Moles/Vol] 102 mmol/L Normal 98-107 [facility] Comment on above: Performed By: #### L 501.9985, L506.1000, L500.4050, L501.9520, L500.4100, L100.0100 #### [facility] [address] [place], [address] CO2 [Moles/Vol] 26.0 mmol/L Normal 21.0-32.0 [facility] Comment on above: Performed By: #### L 501.9985, L506.1000, L500.4050, L501.9520, L500.4100, L100.0100 #### [facility] [address] [place], [address] Creatinine [Mass/Vol] 1.22 mg/dL Normal 0.70-1.30 [facility] Comment on above: Result Comment: The validity of the calculated GFR GFRAA in patients over 70 years has not been determined. Clinical correlation is essential. Performed By: #### L 501.9985, L506.1000, L500.4050, L501.9520, L500.4100, L100.0100 #### [facility] [address] [place], [address] EST GFR - AA 77 mL/min Normal >60 [facility] Comment on above: Result Comment: Afri can Croatian GFR Calc Performed By: #### L 501.9985, L506.1000, L500.4050, L501.9520, L500.4100, L100.0100 #### [facility] [address] [place], [address] GAP 8 Normal 5-15 [facility] Comment on above: Performed By: #### L 501.9985, L506.1000, L500.4050, L501.9520, L500.4100, L100.0100 #### [facility] [address] [place], [address] GFR/1.73 sq M.predicted among non-blacks MDRD (S/P/Bld) [Vol rate/Area] 63 mL/min/{1.73_m2} Normal >60 [facility] Comment on above: Result Comment: Non- GFR Calc Performed By: #### L 501.9985, L506.1000, L500.4050, L501.9520, L500.4100, L100.0100 #### [facility] [address] [place], [address] Globulin (S) [Mass/Vol] 2.7 g/dL Normal 2.2-4.2 [facility] Comment on above: Performed By: #### L 501.9985, L506.1000, L500.4050, L501.9520, L500.4100, L100.0100 #### [facility] [address] [place], [address] Glucose [Mass/Vol] 279 mg/dL High 74-106 [facility] Comment on above: Result Comment: Gluc ose result greater than or equal to 200 mg/dL suggests DIABETES MELLITUS per A.D.A. criteria. Performed By: #### L 501.9985, L506.1000, L500.4050, L501.9520, L500.4100, L100.0100 #### [facility] [address] [place], [address] Potassium [Moles/Vol] 4.5 mmol/L Normal 3.5-5.1 [facility] Comment on above: Performed By: #### L 501.9985, L506.1000, L500.4050, L501.9520, L500.4100, L100.0100 #### [facility] [address] [place], [address] Sodium [Moles/Vol] 136 mmol/L Normal 136-145 [facility] Comment on above: Performed By: #### L 501.9985, L506.1000, L500.4050, L501.9520, L500.4100, L100.0100 #### [facility] [address] [place], [address] T PROT 6.8 g/dL Normal 6.4-8.2 [facility] Comment on above: Performed By: #### L 501.9985, L506.1000, L500.4050, L501.9520, L500.4100, L100.0100 #### [facility] [address] [place], [address] Urea nitrogen [Mass/Vol] 15 mg/dL Normal 7-18 [facility] Comment on above: Performed By: #### L 501.9985, L506.1000, L500.4050, L501.9520, L500.4100, L100.0100 #### [facility] [address] [place], [address] Hemoglobin A1con 04-21-2024 HbA1c (Bld) [Mass fraction] 7.5 % High 3.8-5.6 [facility] Comment on above: Result Comment: Norm al < 5.7 % Prediabetic 5.7 - 6.4 % Diabetic >or= 6.5 % Please note range changes. Performed By: #### L 501.9985, L506.1000, L500.4050, L501.9520, L500.4100, L100.0100 #### [facility] [address] [place], [address] Lipid Profileon 04-21-2024 Cholesterol [Mass/Vol] 69 mg/dL Normal 200 [facility] Comment on above: Result Comment: <200 mg/dL Desirable 200-240 mg/dL Borderline >240 mg/dL High Risk Performed By: #### L 501.9985, L506.1000, L500.4050, L501.9520, L500.4100, L100.0100 #### [facility] [address] [place], [address] Cholesterol in HDL [Mass/Vol] 34 mg/dL Low [facility] Comment on above: Result Comment: The drugs N-Acetylcysteine and Metamizole may falsely depress this assay. Reference Range HDL <40 mg/dL Low HDL Cholesterol HDL >or= 60 mg/dL High HDL Cholesterol Performed By: #### L 501.9985, L506.1000, L500.4050, L501.9520, L500.4100, L100.0100 #### [facility] [address] [place], [address] Cholesterol in LDL [Mass/Vol] 13 mg/dL Normal 0-130 [facility] Comment on above: Performed By: #### L 501.9985, L506.1000, L500.4050, L501.9520, L500.4100, L100.0100 #### [facility] [address] [place], [address] Cholesterol in VLDL [Mass/Vol] 22 mg/dL Normal 5-40 [facility] Comment on above: Performed By: #### L 501.9985, L506.1000, L500.4050, L501.9520, L500.4100, L100.0100 #### [facility] [address] [place], [address] Triglyceride [Mass/Vol] 111 mg/dL Normal [facility] Comment on above: Result Comment: The drugs N-Acetylcysteine and Metamizole may falsely depress this assay. Serum Triglycerides Reference Interval Normal <150 mg/dL Borderline high 150 - 199 mg/dL High 200 - 499 mg/dL Very High > or = 500 mg/dL Performed By: #### L 501.9985, L506.1000, L500.4050, L501.9520, L500.4100, L100.0100 #### [facility] [address] [place], [address] Thyroid Stim Hormone (TSH)on 04-21-2024 TSH 2.550 uIU/mL Normal 0.358-3.740 [facility] Comment on above: Performed By: #### L 501.9985, L506.1000, L500.4050, L501.9520, L500.4100, L100.0100 #### [facility] [address] [place], [place], [address] Vitamin D,25 Hydroxyon 04-21 Vitamin D 25-OH 28.8 ng/mL Normal [facility] Comment on above: Result Comment: Blessing min D 25(OH) Status Range Deficiency <20 ng/mL (50nmol/L) Insufficiency 20 - 30 ng/mL (50 - 75 nmol/L) Sufficiency 30 - 100 ng/mL (75 - 250 nmol/L) Toxicity >100 ng/mL (>250 nmol/L) Performed By: #### L 501.9985, L506.1000, L500.4050, L501.9520, L500.4100, L100.0100 #### [facility] [address] [place], [place], [address] Absolute lymphocyte countOrd ered By: Emery Elizabeth on 04-19-2023 Lymphocytes Auto (Unsp spec) [#/Vol] 36.58 10*3/uL 0.83-4.51 [facility] Comment on above: Previous reported re sult: 35.12 X10^3/uLEdited by: KIERRA on 04/19/23:1215 AMENDED REPORT 04/19/23 1215 Absolute Lymph previously reported as: 35.12 H X10^3/uL Basophil percentageOrdered B y: Emery Zuritaok on 04-19-2023 Basophil percentage [facility] Comment on above: Previous reported re sult: 10.3 %Edited by: KIERRA on 04/19/23:1208 AMENDED REPORT 04/19/23 120 NEUT% previously reported as: 10.3 L % Previous reported re sult: 0.8 %Edited by: KIERRA on 04/19/23:1209 AMENDED REPORT 04/19/23 1209 EO% previously reported as: 0.8 % Previous reported re sult: 0.3 %Edited by: KIERRA on 04/19/23:1209 AMENDED REPORT 04/19/23 1209 BASO% previously reported as: 0.3 % Bilirubin [Mass/Vol] 0.80 mg/dL 0.20-1.00 [facility] Comment on above: For patients on eltr ombopag therapy, use of Dimension Sabine TBIL is not recommended. Chloride [Moles/Vol] 106 mmol/L 98-107 [facility] Glucose [Mass/Vol] 196 mg/dL 74-106 [facility] Comment on above: Fasting Glucose resu lt greater than or equal to 126 mg/dL suggests DIABETES MELLITUS per A.D.A. criteria. Neutrophils (Bld) [#/Vol] 4.7 10*3/uL 2.0-7.7 [facility] Comment on above: Previous reported re sult: 4.4 X10^3/uLEdited by: KIERRA on 04/19/23:1214 AMENDED REPORT 04/19/23 1214 Absolute Neut previously reported as: 4.4 X10^3/uL Potassium [Moles/Vol] 4.8 mmol/L 3.5-5.1 [facility] Protein [Mass/Vol] 6.4 g/dL 6.4-8.2 [facility] Sodium [Moles/Vol] 138 mmol/L 136-145 [facility] WBC (Bld) [#/Vol] 42.5 10*3/uL 4.4-11.0 [facility] Comment on above: CRITICAL VALUE VERIF IED. CALLED TO ARABELLA ESCOBAR04/19/23 1157 Moustapha Kingsley.RESULTS READ BACK BY SAME . Blood erythrocytes count (nu mber/volume)Ordered By: Emery Elizabeth on 04-19-2023 RBC (Bld) [#/Vol] 3.99 10*6/uL 4.6-6.2 [facility] Blood hemoglobin measurement (mass/volume)Ordered By: Emery Elizabeth on 04-19-2023 Hemoglobin (Bld) [Mass/Vol] 13.3 g/dL 13.0-16.5 [facility] Blood lymphocytes/100 leukoc ytesOrdered By: Emery Elizabeth on 04-19-2023 Lymphocytes/100 WBC (Bld) [facility] Comment on above: Previous reported re sult: 82.6 %Edited by: KIERRA on 04/19/23:1209 AMENDED REPORT 04/19/23 1209 LY% previously reported as: 82.6 H % Lymphocytes/100 WBC (Bld) 86 % 19-41 [facility] Blood manual differential co mment interpretation (narrative result)Ordered By: Emery Elizabeth on 04-19-2023 Manual differential comment Dutch (Bld) [Interp] SCANNED [facility] Blood monocytes/100 leukocyt esOrdered By: Emery Elizabeth on 04-19-2023 Monocytes/100 WBC (Bld) [facility] Comment on above: Previous reported re sult: 5.8 %Edited by: KIERRA on 04/19/23:1209 AMENDED REPORT 04/19/23 1209 MONO% previously reported as: 5.8 % Monocytes/100 WBC (Bld) 3 % 0-10 [facility] Blood platelet adequacy dete ction by light microscopyOrdered By: Emery Elizabeth on 04-19-2023 Platelets LM Ql (Bld) ADEQUATE ADEQ [facility] Blood platelet mean volumeOr dered By: Emery Elizabeth on 04-19-2023 Platelet mean volume (Bld) [Entitic vol] 10.2 fL 6.2-12.0 [facility] Blood segmented neutrophils/ 100 leukocytesOrdered By: Emery Elizabeth on 04-19-2023 Segmented neutrophils/100 WBC (Bld) 11 % 47-70 [facility] Determination of erythrocyte mean corpuscular volume (MCV)Ordered By: Emery Elizabeth on 04-19-2023 MCV (RBC) [Entitic vol] 101.3 fL 80-94 [facility] Hematocrit Auto (Bld) [Volum e fraction]Ordered By: Emery Elizabeth on 04-19-2023 Hematocrit (Bld) [Volume fraction] 40.4 % 40-54 [facility] - Chemistry and C hemistry - challengeOrdered By: Emery Elizabeth 04-19-2023 ALP [Catalytic activity/Vol] 78 U/L 45-117 [facility] ALT [Catalytic activity/Vol] 29 U/L 16-61 [facility] CO2 [Moles/Vol] 25.0 mmol/L 21.0-32.0 [facility] Globulin (S) [Mass/Vol] 2.3 g/dL 2.2-4.2 [facility] Urea nitrogen/Creatinine [Mass ratio] 15.9 mg/mg 10-20 [facility] - Hematology and Cell countsOrdered By: Emery Elizabeth 04-19-2023 Erythrocyte distribution width (RBC) [Entitic vol] 52.3 fL 35.1-43.9 [facility] Erythrocyte distribution width (RBC) [Ratio] 14.4 % 11.6-14.6 [facility] MCH (RBC) [Entitic mass] 33.3 pg 27.0-32.0 [facility] Nucleated RBC/100 WBC (Bld) [Ratio] 0 % 0-5 [facility] MCHC Auto (RBC) [Mass/Vol]Or dered By: Emery Elizabeth on 04-19-2023 MCHC (RBC) [Mass/Vol] 32.9 g/dL 32-36 [facility] No Panel InformationOrdered By: Emery Elizabeth on 04-19-2023 Estimated GFR (MDRD) Amer 103 mL/min >60 [facility] Comment on above: GFR Calc Estimated GFR (MDRD) Non-Af Amer 85 mL/min >60 [facility] Comment on above: Non- GFR Calc Immature Granulocyte % (Auto) [facility] Comment on above: Previous reported re sult: 0.200 %Edited by: KIERRA on 04/19/23:1209 AMENDED REPORT 04/19/23 1209 IM GRAN % previously reported as: 0.200 % IG% - Immature Granulocytes (promyelocytes, myelocytes and metamyelocytes) > 1% indicates that a LEFT SHIFT is Present. Thyroid Stimulating Hormone (TSH) 2.15 uIU/mL 0.358-3.74 [facility] Platelets bldOrdered By: Emery Elizabeth on 04-19-2023 Platelets (Bld) [#/Vol] 182 10*3/uL 150-450 [facility] RBC morphologyOrdered By: Felix Elizabeth on 04-19-2023 RBC morphology finding Nom (Bld) NORM C+C NORMAL NORM C&C [facility] Review by pathologistOrdered By: Emery Elizabeth on 04-19-2023 Pathologist review Dutch (Unsp spec) [Interp] Reviewed [facility] Comment on above: Previous reported re sult: August jarred Edited by: HATTIE on 04/20/23:1307Absolute lymphocytosis suggestive of low grade lympho-proliferative disorder.Macrocytosis.Clinical correlation is necessary. Titi Mullins M.D. 04/20/23 AMENDED REPORT 04/20/23 1307 PATH REV previously reported as: August Serum or plasma albumin marily urement (mass/volume)Ordered By: Emery Elizabeth on 04-19-2023 Albumin [Mass/Vol] 4.1 g/dL 3.2-5.0 [facility] Serum or plasma albumin/glob ulin mass ratioOrdered By: Emery Elizabeth on 04-19-2023 Albumin/Globulin [Mass ratio] 1.8 {ratio} 0.9-2.4 [facility] Serum or plasma calcium marily urement (mass/volume)Ordered By: Emery Elizabeth on 04-19-2023 Calcium [Mass/Vol] 9.5 mg/dL 8.5-10.1 [facility] Serum or plasma creatinine m easurement (mass/volume)Ordered By: Emery Elizabeth on 04-19-2023 Creatinine [Mass/Vol] 0.94 mg/dL 0.70-1.30 [facility] Comment on above: The validity of the calculated GFR & GFRAA in patients over 70 years has not been determined. Clinical correlation is essential. Serum or plasma urea nitroge n measurement (mass/volume)Ordered By: Emery Elizabeth on 04-19-2023 Urea nitrogen [Mass/Vol] 15 mg/dL 7-18 [facility] Smudge cell detectionOrdered By: Emery Elizabeth on 04-19-2023 Smudge cells LM Ql (Bld) 2+ [facility] Thin prep Papanicolaou smear with manual screeningOrdered By: Emery Elizabeth on 04-19-2023 Thin prep Papanicolaou smear with manual screening 17 U/L 15-37 [facility] Thin prep Papanicolaou smear with manual screening 7 - [facility] Total cell countOrdered By: Emery Elizabeth on 04-19-2023 Cells counted Molgen (Bld/Tiss) [#] 100 MANUAL DIFF [facility] Absolute lymphocyte countOrd ered By: Emery Elizabeth on 01-12-2023 Lymphocytes Auto (Unsp spec) [#/Vol] 32.03 10*3/uL 0.83-4.51 [facility] Basophil percentageOrdered B y: Emery Elizabeth on 01-12-2023 Basophils/100 WBC (Bld) 0.1 % 0-1 [facility] Bilirubin [Mass/Vol] 0.80 mg/dL 0.20-1.00 [facility] Comment on above: For patients on eltr ombopag therapy, use of Dimension [place] TBIL is not recommended. Chloride [Moles/Vol] 104 mmol/L 98-107 [facility] Eosinophils/100 WBC (Bld) 0.6 % 0-5 [facility] Glucose [Mass/Vol] 194 mg/dL 74-106 [facility] Comment on above: Fasting Glucose resu lt greater than or equal to 126 mg/dL suggests DIABETES MELLITUS per A.D.A. criteria. Neutrophils (Bld) [#/Vol] 3.8 10*3/uL 2.0-7.7 [facility] Neutrophils/100 WBC (Bld) 10.0 % 47-70 [facility] Potassium [Moles/Vol] 4.0 mmol/L 3.5-5.1 [facility] Protein [Mass/Vol] 6.5 g/dL 6.4-8.2 [facility] Sodium [Moles/Vol] 137 mmol/L 136-145 [facility] WBC (Bld) [#/Vol] 38.2 10*3/uL 4.4-11.0 [facility] Blood erythrocytes count (nu mber/volume)Ordered By: Emery Elizabeth on 01-12-2023 RBC (Bld) [#/Vol] 3.83 10*6/uL 4.6-6.2 [facility] Blood hemoglobin measurement (mass/volume)Ordered By: Emery Elizabeth on 01-12-2023 Hemoglobin (Bld) [Mass/Vol] 12.6 g/dL 13.0-16.5 [facility] Blood lymphocytes/100 leukoc ytesOrdered By: Emery Elizabeth on 01-12-2023 Lymphocytes/100 WBC (Bld) 83.8 % 19-41 [facility] Blood manual differential co mment interpretation (narrative result)Ordered By: Emery Elizabeth on 01-12-2023 Manual differential comment Dutch (Bld) [Interp] See comment [facility] Comment on above: LYMPHOCYTOSIS Blood monocytes/100 leukocyt esOrdered By: Emery Elizabeth on 01-12-2023 Monocytes/100 WBC (Bld) 5.3 % 0-10 [facility] Blood platelet mean volumeOr dered By: Emery Elizabeth on 01-12-2023 Platelet mean volume (Bld) [Entitic vol] 9.9 fL 6.2-12.0 [facility] Determination of erythrocyte mean corpuscular volume (MCV)Ordered By: Emery Elizabeth on 01-12-2023 MCV (RBC) [Entitic vol] 101.8 fL 80-94 [facility] Hematocrit Auto (Bld) [Volum e fraction]Ordered By: Emery Elizabeth on 01-12-2023 Hematocrit (Bld) [Volume fraction] 39.0 % 40-54 [facility] Laboratory - Chemistry and C hemistry - challengeOrdered By: Emery Elizabeth on 01-12-2023 ALP [Catalytic activity/Vol] 67 U/L 45-117 [facility] ALT [Catalytic activity/Vol] 33 U/L 16-61 [facility] CO2 [Moles/Vol] 24.0 mmol/L 21.0-32.0 [facility] Globulin (S) [Mass/Vol] 2.6 g/dL 2.2-4.2 [facility] Urea nitrogen/Creatinine [Mass ratio] 9.8 mg/mg 10-20 [facility] Laboratory - Hematology and Cell countsOrdered By: Emery Elizabeth on 01-12-2023 Erythrocyte distribution width (RBC) [Entitic vol] 53.2 fL 35.1-43.9 [facility] Erythrocyte distribution width (RBC) [Ratio] 14.5 % 11.6-14.6 [facility] Immature granulocytes/100 WBC (Bld) 0.200 % 0.0-0.9 [facility] Comment on above: IG% - Immature Granu locytes (promyelocytes, myelocytes and metamyelocytes) > 1% indicates that a LEFT SHIFT is Present. MCH (RBC) [Entitic mass] 32.9 pg 27.0-32.0 [facility] Nucleated RBC/100 WBC (Bld) [Ratio] 0 % 0-5 [facility] MCHC Auto (RBC) [Mass/Vol]Or dered By: Emery Elizabeth on 01-12-2023 MCHC (RBC) [Mass/Vol] 32.3 g/dL 32-36 [facility] No Panel InformationOrdered By: Emery Elizabeth on 01-12-2023 Estimated GFR (MDRD) Amer 95 mL/min >60 [facility] Comment on above: GFR Calc Estimated GFR (MDRD) Non-Af Amer 78 mL/min >60 [facility] Comment on above: Non- GFR Calc Thyroid Stimulating Hormone (TSH) 0.97 uIU/mL 0.358-3.74 [facility] Platelets bldOrdered By: Emery Elizabeth on 01-12-2023 Platelets (Bld) [#/Vol] 204 10*3/uL 150-450 [facility] Review by pathologistOrdered By: Emery Elizabeth on 01-12-2023 Pathologist review Dutch (Unsp spec) [Interp] Reviewed [facility] Comment on above: Previous reported re sult: Usha jarred Edited by: RGOOD on 01/13/23:1343Absolute lymphocytosis consistent with CLL/SLL.Macrocytic anemia.Clinical correlation necessary.Enmanuel Valdovinos D.O. 01/13/23 AMENDED REPORT 01/13/23 1343 PATH REV previously reported as: Usha stern Serum or plasma albumin marily urement (mass/volume)Ordered By: Emery Elizabeth on 01-12-2023 Albumin [Mass/Vol] 3.9 g/dL 3.2-5.0 [facility] Serum or plasma albumin/glob ulin mass ratioOrdered By: Emery Elizabeth on 01-12-2023 Albumin/Globulin [Mass ratio] 1.5 {ratio} 0.9-2.4 [facility] Serum or plasma calcium marily urement (mass/volume)Ordered By: Emery Elizabeth on 01-12-2023 Calcium [Mass/Vol] 8.5 mg/dL 8.5-10.1 [facility] Serum or plasma creatinine m easurement (mass/volume)Ordered By: Emery Elizabeth on 01-12-2023 Creatinine [Mass/Vol] 1.02 mg/dL 0.70-1.30 [facility] Comment on above: The validity of the calculated GFR & GFRAA in patients over 70 years has not been determined. Clinical correlation is essential. Serum or plasma urea nitroge n measurement (mass/volume)Ordered By: Emery Elizabeth on 01-12-2023 Urea nitrogen [Mass/Vol] 10 mg/dL 7-18 [facility] Thin prep Papanicolaou smear with manual screeningOrdered By: Emery Elizabeth on 01-12-2023 Thin prep Papanicolaou smear with manual screening 23 U/L 15-37 [facility] Thin prep Papanicolaou smear with manual screening 9 5-15 [facility] Absolute lymphocyte countOrd ered By: Emery Elizabeth on 10-14-2022 Lymphocytes Auto (Unsp spec) [#/Vol] 26.18 10*3/uL 0.83-4.51 [facility] Basophil percentageOrdered B y: Emery Elizabeth on 10-14-2022 Basophils/100 WBC (Bld) 0.2 % 0-1 [facility] Bilirubin [Mass/Vol] 0.90 mg/dL 0.20-1.00 [facility] Comment on above: For patients on eltr ombopag therapy, use of Dimension [place] TBIL is not recommended. Chloride [Moles/Vol] 105 mmol/L 98-107 [facility] Eosinophils/100 WBC (Bld) 0.5 % 0-5 [facility] Glucose [Mass/Vol] 212 mg/dL 74-106 [facility] Comment on above: Glucose result great er than or equal to 200 mg/dLsuggests DIABETES MELLITUS per A.D.A. criteria. Neutrophils (Bld) [#/Vol] 3.5 10*3/uL 2.0-7.7 [facility] Neutrophils/100 WBC (Bld) 11.2 % 47-70 [facility] Potassium [Moles/Vol] 4.8 mmol/L 3.5-5.1 [facility] Protein [Mass/Vol] 6.6 g/dL 6.4-8.2 [facility] Sodium [Moles/Vol] 136 mmol/L 136-145 [facility] WBC (Bld) [#/Vol] 31.2 10*3/uL 4.4-11.0 [facility] Comment on above: CRITICAL VALUE VERIF IED. CALLED TO DYAN ELIZABETH'S [id number]/12/23 5830 Irma Ricardo.RESULTS READ BACK BY SAME . Blood erythrocytes count (nu mber/volume)Ordered By: Emery Elizabeth on 10-14-2022 RBC (Bld) [#/Vol] 3.94 10*6/uL 4.6-6.2 [facility] Blood hemoglobin measurement (mass/volume)Ordered By: Emery Elizabeth on 10-14-2022 Hemoglobin (Bld) [Mass/Vol] 13.1 g/dL 13.0-16.5 [facility] Blood lymphocytes/100 leukoc ytesOrdered By: Emery Elizabeth on 10-14-2022 Lymphocytes/100 WBC (Bld) 84.0 % 19-41 [facility] Blood manual differential co mment interpretation (narrative result)Ordered By: Emery Elizabeth on 10-14-2022 Manual differential comment Dutch (Bld) [Interp] SCANNED [facility] Comment on above: LEUKOCYTOSIS NOTEDLY MPHOCYTOSIS NOTED Blood monocytes/100 leukocyt esOrdered By: Emery Elizabeth on 10-14-2022 Monocytes/100 WBC (Bld) 3.9 % 0-10 [facility] Blood platelet mean volumeOr dered By: Emery Elizabeth on 10-14-2022 Platelet mean volume (Bld) [Entitic vol] 10.9 fL 6.2-12.0 [facility] Determination of erythrocyte mean corpuscular volume (MCV)Ordered By: Emery Elizabeth on 10-14-2022 MCV (RBC) [Entitic vol] 98.7 fL 80-94 [facility] Hematocrit Auto (Bld) [Volum e fraction]Ordered By: Emery Elizabeth on 10-14-2022 Hematocrit (Bld) [Volume fraction] 38.9 % 40-54 [facility] Laboratory - Chemistry and C hemistry - challengeOrdered By: Emery Elizabeth on 10-14-2022 ALP [Catalytic activity/Vol] 66 U/L 45-117 [facility] ALT [Catalytic activity/Vol] 28 U/L 16-61 [facility] CO2 [Moles/Vol] 26.0 mmol/L 21.0-32.0 [facility] Globulin (S) [Mass/Vol] 2.8 g/dL 2.2-4.2 [facility] Urea nitrogen/Creatinine [Mass ratio] 11.2 mg/mg 10-20 [facility] Laboratory - Hematology and Cell countsOrdered By: Emery Elizabeth on 10-14-2022 Erythrocyte distribution width (RBC) [Entitic vol] 50.8 fL 35.1-43.9 [facility] Erythrocyte distribution width (RBC) [Ratio] 14.0 % 11.6-14.6 [facility] Immature granulocytes/100 WBC (Bld) 0.200 % 0.0-0.9 [facility] Comment on above: IG% - Immature Granu locytes (promyelocytes, myelocytes and metamyelocytes) > 1% indicates that a LEFT SHIFT is Present. MCH (RBC) [Entitic mass] 33.2 pg 27.0-32.0 [facility] Nucleated RBC/100 WBC (Bld) [Ratio] 0 % 0-5 [facility] MCHC Auto (RBC) [Mass/Vol]Or dered By: Emery Elizabeth on 10-14-2022 MCHC (RBC) [Mass/Vol] 33.7 g/dL 32-36 [facility] No Panel InformationOrdered By: Emery Elizabeth on 10-14-2022 Estimated GFR (MDRD) Amer 82 mL/min >60 [facility] Comment on above: GFR Calc Estimated GFR (MDRD) Non-Af Amer 67 mL/min >60 [facility] Comment on above: Non- GFR Calc Thyroid Stimulating Hormone (TSH) 0.29 uIU/mL 0.358-3.74 [facility] Platelets bldOrdered By: Emery Elizabeth on 10-14-2022 Platelets (Bld) [#/Vol] 197 10*3/uL 150-450 [facility] Review by pathologistOrdered By: Emery Elizabeth on 10-14-2022 Pathologist review Dutch (Unsp spec) [Interp] Reviewed [facility] Comment on above: Previous reported re sult: Usha stern Edited by: PETER on 10/15/22:1049Absolute lymphocytosis suggestive of low grade lympho-proliferative disorder.MacrocytosisClinical correlation is necessary. Titi Mullins M.D. 10/15/22 AMENDED REPORT 10/15/22 1049 PATH REV previously reported as: Usha stern Serum or plasma albumin marily urement (mass/volume)Ordered By: Emery Elizabeth on 10-14-2022 Albumin [Mass/Vol] 3.8 g/dL 3.2-5.0 [facility] Serum or plasma albumin/glob ulin mass ratioOrdered By: Emery Elizabeth on 10-14-2022 Albumin/Globulin [Mass ratio] 1.4 {ratio} 0.9-2.4 [facility] Serum or plasma calcium marily urement (mass/volume)Ordered By: Emery Elizabeth on 10-14-2022 Calcium [Mass/Vol] 9.0 mg/dL 8.5-10.1 [facility] Serum or plasma creatinine m easurement (mass/volume)Ordered By: Emery Fausto on 10-14-2022 Creatinine [Mass/Vol] 1.16 mg/dL 0.70-1.30 [facility] Comment on above: The validity of the calculated GFR & GFRAA in patients over 70 years has not been determined. Clinical correlation is essential. Serum or plasma urea nitroge n measurement (mass/volume)Ordered By: Emery Elizabeth on 10-14-2022 Urea nitrogen [Mass/Vol] 13 mg/dL 7-18 [facility] Thin prep Papanicolaou smear with manual screeningOrdered By: Emery Fausto on 10-14-2022 Thin prep Papanicolaou smear with manual screening 15 U/L 15 [facility] Thin prep Papanicolaou smear with manual screening 5 5-15 [facility] Absolute lymphocyte counton 04-02-2022 Lymphocytes Auto (Unsp spec) [#/Vol] 21.79 10*3/uL 0.83-4.51 [facility] Work Phone: Basophil percentageon 2021 Basophils/100 WBC (Bld) 0.2 % 0-1 [facility] Work Phone: Bilirubin [Mass/Vol] 1.30 mg/dL 0.20-1.00 [facility] Work Phone: Comment on above: For patients on eltr ombopag therapy, use of Dimension [place] TBIL is not recommended. Chloride [Moles/Vol] 102 mmol/L 98-107 [facility] Work Phone: Eosinophils/100 WBC (Bld) 1.1 % 0-5 [facility] Work Phone: Glucose [Mass/Vol] 330 mg/dL 74-106 [facility] Work Phone: Comment on above: Glucose result great er than or equal to 200 mg/dLsuggests DIABETES MELLITUS per A.D.A. criteria. Neutrophils (Bld) [#/Vol] 4.6 10*3/uL 2.0-7.7 [facility] Work Phone: Neutrophils/100 WBC (Bld) 16.3 % 47-70 [facility] Work Phone: Potassium [Moles/Vol] 4.6 mmol/L 3.5-5.1 [facility] Work Phone: Protein [Mass/Vol] 6.6 g/dL 6.4-8.2 [facility] Work Phone: Sodium [Moles/Vol] 134 mmol/L 136-145 [facility] Work Phone: WBC (Bld) [#/Vol] 28.7 10*3/uL 4.4-11.0 [facility] Work Phone: Blood erythrocytes count (nu mber/volume)on 04-02-2022 RBC (Bld) [#/Vol] 4.10 10*6/uL 4.6-6.2 [facility] Work Phone: Blood hemoglobin measurement (mass/volume)on 04-02-2022 Hemoglobin (Bld) [Mass/Vol] 13.8 g/dL 13.0-16.5 [facility] Work Phone: Blood lymphocytes/100 leukoc yteson 04-02-2022 Lymphocytes/100 WBC (Bld) 76.0 % 19-41 [facility] Work Phone: Blood manual differential co mment interpretation (narrative result)on 04-02-2022 Manual differential comment Dutch (Bld) [Interp] SEE COMMENTS [facility] Work Phone: Comment on above: LYMPHOCYTOSIS NOTED MONOCYTOSIS NOTED Blood monocytes/100 leukocyt eson 04-02-2022 Monocytes/100 WBC (Bld) 6.2 % 0-10 [facility] Work Phone: Blood platelet adequacy dete ction by light microscopyon 04-02-2022 Platelets LM Ql (Bld) ADEQUATE ADEQ [facility] Work Phone: Blood platelet mean volumeon 04-02-2022 Platelet mean volume (Bld) [Entitic vol] 10.6 fL 6.2-12.0 [facility] Work Phone: [phone] Determination of erythrocyte mean corpuscular volume (MCV)on 04-02-2022 MCV (RBC) [Entitic vol] 94.4 fL 80-94 [facility] Work Phone: [phone] Hematocrit Auto (Bld) [Volum e fraction]on 04-02-2022 Hematocrit (Bld) [Volume fraction] 38.7 % 40-54 [facility] Work Phone: [phone] Laboratory - Chemistry and C hemistry - challengeon 04-02-2022 ALP [Catalytic activity/Vol] 72 U/L 45-117 [facility] Work Phone: [phone] ALT [Catalytic activity/Vol] 30 U/L 16-61 [facility] Work Phone: [phone] CO2 [Moles/Vol] 28.0 mmol/L 21.0-32.0 [facility] Work Phone: [phone] Globulin (S) [Mass/Vol] 2.7 g/dL 2.2-4.2 [facility] Work Phone: [phone] Urea nitrogen/Creatinine [Mass ratio] 12.4 mg/mg 10-20 [facility] Work Phone: [phone] Laboratory - Hematology and Cell countson 04-02-2022 [facility]isocytosis [facility]l [facility]Bld) [facility]: [phone] Erythrocyte distribution width (RBC) [Entitic vol] 48.0 fL 35.1-43.9 [facility] Work Phone: [phone] Erythrocyte distribution width (RBC) [Ratio] 14.0 % 11.6-14.6 [facility] Work Phone: [phone] Immature granulocytes/100 WBC (Bld) 0.200 % 0.0-0.9 [facility] Work Phone: [phone] Comment on above: IG% - Immature Granu locytes (promyelocytes, myelocytes and metamyelocytes) > 1% indicates that a LEFT SHIFT is Present. MCH (RBC) [Entitic mass] 33.7 pg 27.0-32.0 [facility] Work Phone: Nucleated RBC/100 WBC (Bld) [Ratio] 0 % 0-5 [facility] Work Phone: MCHC Auto (RBC) [Mass/Vol]on 04-02-2022 MCHC (RBC) [Mass/Vol] 35.7 g/dL 32-36 [facility] Work Phone: Macrocytes detectionon 04-02 Macrocytes Ql (Bld) RARE [facility] Work Phone: No Panel Informationon 04-02 Vitamin D 25-Hydroxy 37.8 ng/mL [facility] Work Phone: Comment on above: Vitamin D 25(OH) Sta tus Range Deficiency <20 ng/mL (50nmol/L) Insufficiency 20 - 30 ng/mL (50 - 75 nmol/L) Sufficiency 30 - 100 ng/mL (75 - 250 nmol/L) Toxicity >100 ng/mL (>250 nmol/L) Atypical Lymphocytes 1+ % [facility] Work Phone: Estimated GFR (MDRD) Amer 72 mL/min >60 [facility] Work Phone: Comment on above: GFR Calc Estimated GFR (MDRD) Non-Af Amer 60 mL/min >60 [facility] Work Phone: Comment on above: Non- GFR Calc Reactive Lymphocytes 2+ [facility] Work Phone: Thyroid Stimulating Hormone (TSH) 0.35 uIU/mL 0.358-3.74 [facility] Work Phone: [phone] Platelets bldon 04-02-2022 Platelets (Bld) [#/Vol] 275 10*3/uL 150-450 [facility] Work Phone: RBC morphologyon 04-02-2022 RBC morphology finding Nom (Bld) N CHROM NORMAL NORM C&C [facility] Work Phone: Review by pathologiston - Pathologist review Dutch (Unsp spec) [Interp] Reviewed [facility] Work Phone: Comment on above: Previous reported re sult: Usha stern Edited by: HATTIE on 04/03/22:1133Absolute lymphocytosis suggestive of low grade lympho-proliferative disorder.Clinical correlation is necessary. Titi Mullins M.D. 04/03/22 AMENDED REPORT 04/03/22 1133 PATH REV previously reported as: Usha stern Serum or plasma albumin marily urement (mass/volume)on 04-02-2022 Albumin [Mass/Vol] 3.9 g/dL 3.2-5.0 [facility] Work Phone: Serum or plasma albumin/glob ulin mass ratioon 04-02-2022 Albumin/Globulin [Mass ratio] 1.4 {ratio} 0.9-2.4 [facility] Work Phone: Serum or plasma calcium marily urement (mass/volume)on 04-02-2022 Calcium [Mass/Vol] 10.1 mg/dL 8.5-10.1 [facility] Work Phone: Serum or plasma creatinine m easurement (mass/volume)on 04-02-2022 Creatinine [Mass/Vol] 1.29 mg/dL 0.70-1.30 [facility] Work Phone: Comment on above: The validity of the calculated GFR & GFRAA in patients over 70 years has not been determined. Clinical correlation is essential. Serum or plasma urea nitroge n measurement (mass/volume)on 04-02-2022 Urea nitrogen [Mass/Vol] 16 mg/dL 7-18 [facility] Work Phone: Thin prep Papanicolaou smear with manual screeningon 04-02-2022 Thin prep Papanicolaou smear with manual screening 15 U/L 15-37 [facility] Work Phone: Thin prep Papanicolaou smear with manual screening 4 5-15 [facility] Work Phone: Thin prep Papanicolaou smear with manual screening 172 U/L 87-241 [facility] Work Phone: Absolute lymphocyte counton 10-02-2021 Lymphocytes Auto (Unsp spec) [#/Vol] 17.26 10*3/uL 0.83-4.51 [facility] Work Phone: Basophil percentageon 2021 Basophils/100 WBC (Bld) 0.3 % 0-1 [facility] Work Phone: [phone] Bilirubin [Mass/Vol] 0.90 mg/dL 0.20-1.00 [facility] Work Phone: [phone] Comment on above: For patients on eltr ombopag therapy, use of Dimension [place] TBIL is not recommended. Chloride [Moles/Vol] 105 mmol/L 98-107 [facility] Work Phone: Eosinophils/100 WBC (Bld) 1.0 % 0-5 [facility] Work Phone: [phone] Glucose [Mass/Vol] 178 mg/dL 74-106 [facility] Work Phone: [phone] Comment on above: Fasting Glucose resu lt greater than or equal to 126 mg/dL suggests DIABETES MELLITUS per A.D.A. criteria. Neutrophils (Bld) [#/Vol] 4.1 10*3/uL 2.0-7.7 [facility] Work Phone: Neutrophils/100 WBC (Bld) 17.8 % 47-70 [facility] Work Phone: [phone] Potassium [Moles/Vol] 4.3 mmol/L 3.5-5.1 [facility] Work Phone: [phone] Protein [Mass/Vol] 6.7 g/dL 6.4-8.2 [facility] Work Phone: Sodium [Moles/Vol] 138 mmol/L 136-145 [facility] Work Phone: [phone] Testosterone [Mass/Vol] 378.57 ng/dL [facility] Work Phone: [phone] Comment on above: CENTRAL 90% REFERENC E RANGES MALE AGE <50 197.44 - 669.58 ng/dL MALE AGE > or = 50 187.72 - 684.19 ng/dL FEMALE AGE <50 8.38 - 35.01 ng/dL FEMALE AGE > or = 50 <7.00 - 35.92 ng/dL Effective as of 10/29/20 WBC (Bld) [#/Vol] 22.9 10*3/uL 4.4-11.0 [facility] Work Phone: Blood erythrocytes count (nu mber/volume)on 10-02-2021 RBC (Bld) [#/Vol] 3.91 10*6/uL 4.6-6.2 [facility] Work Phone: Blood hemoglobin measurement (mass/volume)on 10-02-2021 Hemoglobin (Bld) [Mass/Vol] 12.7 g/dL 13.0-16.5 [facility] Work Phone: Blood lymphocytes/100 leukoc yteson 10-02-2021 Lymphocytes/100 WBC (Bld) 75.3 % 19-41 [facility] Work Phone: Blood manual differential co mment interpretation (narrative result)on 10-02-2021 Manual differential comment Dutch (Bld) [Interp] SCANNED [facility] Work Phone: Comment on above: LYMPHOCYTOSIS NOTED Blood monocytes/100 leukocyt eson 10-02-2021 Monocytes/100 WBC (Bld) 5.4 % 0-10 [facility] Work Phone: Blood platelet mean volumeon 10-02-2021 Platelet mean volume (Bld) [Entitic vol] 10.8 fL 6.2-12.0 [facility] Work Phone: [phone] Determination of erythrocyte mean corpuscular volume (MCV)on 10-02-2021 MCV (RBC) [Entitic vol] 96.4 fL 80-94 [facility] Work Phone: [phone] Hematocrit Auto (Bld) [Volum e fraction]on 10-02-2021 Hematocrit (Bld) [Volume fraction] 37.7 % 40-54 [facility] Work Phone: [phone] Laboratory - Chemistry and C hemistry - challengeon 10-02-2021 ALP [Catalytic activity/Vol] 69 U/L 45-117 [facility] Work Phone: [phone] ALT [Catalytic activity/Vol] 25 U/L 16-61 [facility] Work Phone: [phone] CO2 [Moles/Vol] 28.0 mmol/L 21.0-32.0 [facility] Work Phone: [phone] Globulin (S) [Mass/Vol] 2.7 g/dL 2.2-4.2 [facility] Work Phone: [phone] Urea nitrogen/Creatinine [Mass ratio] 18.0 mg/mg 10-20 [facility] Work Phone: [phone] Laboratory - Hematology and Cell countson 10-02-2021 Erythrocyte distribution width (RBC) [Entitic vol] 47.9 fL 35.1-43.9 [facility] Work Phone: [phone] Erythrocyte distribution width (RBC) [Ratio] 13.8 % 11.6-14.6 [facility] Work Phone: [phone] Immature granulocytes/100 WBC (Bld) 0.200 % 0.0-0.9 [facility] Work Phone: [phone] Comment on above: IG% - Immature Granu locytes (promyelocytes, myelocytes and metamyelocytes) > 1% indicates that a LEFT SHIFT is Present. MCH (RBC) [Entitic mass] 32.5 pg 27.0-32.0 [facility] Work Phone: [phone] Nucleated RBC/100 WBC (Bld) [Ratio] 0 % 0-5 [facility] Work Phone: [phone] MCHC Auto (RBC) [Mass/Vol]on 10-02-2021 MCHC (RBC) [Mass/Vol] 33.7 g/dL 32-36 [facility] Work Phone: [phone] No Panel Informationon 10-02 Estimated GFR (MDRD) Amer 103 mL/min >60 [facility] Work Phone: [phone] Comment on above: GFR Calc Estimated GFR (MDRD) Non-Af Amer 86 mL/min >60 [facility] Work Phone: [phone] Comment on above: Non- GFR Calc Prostate Specific Antigen Screen 0.38 ng/mL 0.00-4.00 [facility] Work Phone: [phone] Comment on above: This test was perfor med using the TPSA assay method for [email or web address] chemistry system. Values obtained with differentassay methods cannot be used interchangably.When changing PSA assays in the course of monitoring apatient, additional sequential testing should be carriedout to confirm baseline values. Thyroid Stimulating Hormone (TSH) 0.33 uIU/mL 0.358-3.74 [facility] Work Phone: [phone] Vitamin D 25-Hydroxy 30.4 ng/mL [facility] Work Phone: [phone] Comment on above: Vitamin D 25(OH) Sta tus Range Deficiency <20 ng/mL (50nmol/L) Insufficiency 20 - 30 ng/mL (50 - 75 nmol/L) Sufficiency 30 - 100 ng/mL (75 - 250 nmol/L) Toxicity >100 ng/mL (>250 nmol/L) Platelets bldon 10-02-2021 Platelets (Bld) [#/Vol] 218 10*3/uL 150-450 [facility] Work Phone: [phone] Serum or plasma albumin marily urement (mass/volume)on 10-02-2021 Albumin [Mass/Vol] 4.0 g/dL 3.2-5.0 [facility] Work Phone: [phone] Serum or plasma albumin/glob ulin mass ratioon 10-02-2021 Albumin/Globulin [Mass ratio] 1.5 {ratio} 0.9-2.4 [facility] Work Phone: [phone] Serum or plasma calcium marily urement (mass/volume)on 10-02-2021 Calcium [Mass/Vol] 9.4 mg/dL 8.5-10.1 [facility] Work Phone: [phone] Serum or plasma creatinine m easurement (mass/volume)on 10-02-2021 Creatinine [Mass/Vol] 0.95 mg/dL 0.70-1.30 [facility] Work Phone: Comment on above: The validity of the calculated GFR & GFRAA in patients over 70 years has not been determined. Clinical correlation is essential. Serum or plasma urea nitroge n measurement (mass/volume)on 10-02-2021 Urea nitrogen [Mass/Vol] 17 mg/dL 7-18 [facility] Work Phone: Smudge cell detectionon 09-05 0-2021 Smudge cells LM Ql (Bld) RARE [facility] Work Phone: Thin prep Papanicolaou smear with manual screeningon 10-02-2021 Thin prep Papanicolaou smear with manual screening 17 U/L 15-37 [facility] Work Phone: Thin prep Papanicolaou smear with manual screening 5 5-15 [facility] Work Phone: Encounters Encounter Date Encounter Type Care Provider Facility Start: 10-23-2024 End: 10-23-[address] Emery Elizabeth MD Work Phone: -Laboratory Phy Office 3rd Flr Start: 10-23-2024 End: 10-23-[address] Emery Elizabeth MD -Laboratory Phy Office 3rd Flr Start: 10-23-2024 End: 10-23-2024 ambulatory Emery Chi Fausto Facility:[facility] Start: 05-22-2024 End: 05-22-2024 ambulatory Emery Chi Fausto Facility:[facility] Start: 04-21-2024 End: 04-21-2024 ambulatory Emery Chi Fausto Facility:[facility] Start: 04-19-2023 End: 04-19-2023 ambulatory [facility] Work Phone: Start: 04-19-2023 End: 04-19-2023 Patient encounter procedure [facility]-Laboratory, Phy Office 3rd Flr Start: 01-12-2023 End: 01-12-2023 Patient encounter procedure [facility]-Laboratory, Phy Office 3rd Flr Start: 10-14-2022 End: 10-14-2022 ambulatory [facility] Work Phone: Start: 10-14-2022 End: 10-14-2022 Patient encounter procedure [facility]-Laboratory, y Office 3rd Flr Start: 04-02-2022 End: 04-02-2022 ambulatory [facility] Work Phone: Start: 04-02-2022 End: 04-02-2022 Patient encounter procedure [facility]-Laboratory, Phy Office 3rd Flr Start: 10-02-2021 End: 10-02-2021 Patient encounter procedure [facility]-Laboratory, Phy Office 3rd Flr Start: 10-01-2021 End: 10-01-2021 Patient encounter procedure [facility]-Cardiovascula r Services Procedures Date Procedure Procedure Detail Performing Clinician Start: 10-23-2024 Prostate specific an tigen measurement Dr. Emery Elizabeth MD Work Phone: Comment on above: This test was perfor med using the [employer] tPSA method. Measured values of a patient sample can vary depending on the testing procedure used. PSA values determined on patient samples by different testing procedures cannot be used interchangeably. If there is a change in PSA assays while monitoring therapy, sequential testing should be performed to confirm baseline values. Start: 10-23-2024 Vitamin D, 25-hydrox y measurement Dr. Emery Elizabeth MD Work Phone: Comment on above: Vitamin D StatusDefi ciency: <20 ng/mL (50nmol/L)Insufficiency: 20-30 ng/mL (50-75 nmol/L)Sufficiency: 30-100 ng/mL (75-250 nmol/L)Toxicity: >100 ng/mL (>250 nmol/L) Colonoscopy COLONOSCOPY Payers Date Payer Category Payer Self-pay [id number] 2013 Unknown [id number] Unknown [id number] Unknown [id number] [id number] Unknown [id number] [id number] [id number] Unknown [id number] [id number] [id number] Social History Date Type Detail Facility Start: 12-30-2020 End: 12-30-2020 Tobacco smoking status NHIS Unknown if ever smoked [facility] Start: 05-22-2020 Non-smoker [facility] Start: 1960 Sex Assigned At Male [facility] Start: 12-30-2020 Tobacco smoking stat us NHIS Never smoked tobacco (finding) [facility] Medical Equipment Procedure Code Equipment Code Equipment Original Text Equipment Identifier Dates Plant polysaccha ride haemostatic agent, bioabsorbable ([id number] FDA Start: 01-06-2021 Evaluation note Note Date & Type Note Facility Evaluation note No assessment information availa ble [facility] Work Phone: Reason for referral (narrative) Note Date & Type Note Facility Reason for referral (narrative) No reason for referral information available [facility] Work Phone: Chief Complaint and Reason for Visit Chief Complaint PVD Chief Complaint DUE ON OR AROUND GONZALEZ E LISTED Advance Directives No Advanced Directives Records Found Advance Directive Response Recorded Date/ Time Living Will No December 30, 2020 1:46pm Power of Transit Proof Machine Operator No December 1:46pm Advance Directive Response Recorded Date/ Time Living Will No December 30, 2020 12:46pm Power of Transit Proof Machine Operator No December 12:46pm Summary Purpose Family History No Family History Records Found Additional Source Comments Goals (unrecognized section and content) Goals may be documented in a n alternate sectionGoals may be documented in an alternate sectionGoals may be documented in an alternate sectionGoals may be documented in an alternate sectionGoals may be documented in an alternate section Care Teams (unrecognized sec tion and content) Team Status: Active Member Role Status Dates Dr. Emery Elizabeth MD Family Provider Active Dr. Emery Elizabeth MD Primary Care Provider Active Team Status: Inactive Member Role Status Dates Dr. Emrey Elizabeth MD Primary Care Provider, Attending Provider Active Team Status: Active Member Role/Relationship Status Dates Dr. Emery Elizabeth MD Primary Care Provider Active Team Status: Inactive Member Role/Relationship Status Dates Dr. Emery Elizabeth MD Primary Care Provider Active Start: October 23, 2024 End: October 23, 2024 Dr. Emery Elizabeth MD Attending Provider Active Start: October 23, 2024 End: October 23, 2024 (unrecognized sect ion and content) No Status Records Found INFORMATION SOURCE (unrecogn ized section and content) DATE CREATED AUTHOR 11/02/2024 [facility] FOR RECORDS PERTAINING TO PATIENTS WHO ARE OR HAVE BEEN ENROLLED IN A CHEMICAL DEPENDENCY/SUBSTANCEABUSE PROGRAM, SOME INFORMATION MAY BE OMITTED. This clinical summary was aggregated from multiple sources. Caution should be exercised in using it in the provision of clinical care. This summary normalizes information from multiple sources, and as a consequence, information in this document may materially change the coding, format and clinical context of patient data. In addition, data may be omitted in some cases. CLINICAL DECISIONS SHOULD BE BASED ON THE PRIMARY CLINICAL RECORDS. [employer] provides no warranty or guarantee of the accuracy or completeness of information in this document.
== END | disposition home or self-care (01) ==
LOC: POLAB3 11:27
PROVIDERS: PCP Family Medicine Geriatric Medicine; Visit Provider Family Medicine Geriatric Medicine
DX: R68.83 Chills (without fever) (principal)
CPT/HCPCS: 87631

== ENCOUNTER → 2025-02-08 | Outpatient (CLI) | payer OTHER, SELFPAY ==
--- NOTE | 2025-02-08 16:28 | RAD_ITS ---
PROCEDURE: RAD/Chest PA and Lateral
== END | disposition home or self-care (01) ==
PROVIDERS: PCP Family Medicine Geriatric Medicine; Referring Provider Family Medicine Geriatric Medicine; Visit Provider Family Medicine Geriatric Medicine
DX: R06.2 Wheezing (principal); R06.02 Shortness of breath
CPT/HCPCS: 71046; 87631